=== PATIENT | female | born 1945 | race Caucasian/White ===

== ENCOUNTER 2020-05-25 13:38 | Inpatient (IN) | payer MEDICARE, OTHER, SELFPAY ==
[2020-05-25] VITALS (11 sets, daily range): BP systolic 138–160; BP diastolic 62–82; PULSE 72–94; RESP 20–26; TEMP 37.1–38.4; O2SAT 87–96; BMI 33.6
--- NOTE | 2020-05-25 14:25 | XR_ITS ---
WS: [id number] Portable AP upright chest, 05/25/2020 Clinical Data: COVID-19, SOB Comparison: Portable chest, 08/24/2008. Findings: There are bilateral patchy opacities involving the right lung and in the left lower lobe. N o nodules, masses or effusions are seen. The heart is enlarged. The pulmonary vascularity is not incr eased. No pneumothorax is seen. The aortic arch shows calcification. XR/XR chest 1V portable [id number] Impression: 1. Bilateral patchy opacities consistent with acute pneumonia. 2. Cardiomegaly and atherosclerosis.
[2020-05-25 14:51] LABS: Eosinophils % 0.4 %; Hematocrit 39.1 % (37.0-47.0); Hemoglobin 12.7 g/dL (11.5-15.3); Lymphocytes # 0.7 10^3/uL (0.8-4.8); Lymphocytes % 15.1 %; Mean Corpuscular HGB Conc 32.5 g/dL (30.0-36.0); Mean Corpuscular Hemoglobin 28.5 pg (28.0-34.0); Mean Corpuscular Volume 87.7 fL (81-99); Mean Platelet Volume 9.1 fL (7.4-10.4); Monocytes # 0.3 10^3/uL (0.2-0.9); Monocytes % 5.6 %; Neutrophils # 3.78 10^3/uL (1.8-7.7); Neutrophils % 78.5 %; Nucleated Red Blood Cells % 0 %; Platelet Count 304 10^3/cmm (130-400); Red Blood Count 4.46 10^6/uL (4.1-5.3); Red Cell Distribution Width 13.1 % (12.1-15.1); White Blood Count 4.8 10^3/uL (4.0-10.0)
--- NOTE | 2020-05-25 15:09 | W.ED.COVID ---
HPI - COVID General: Chief Complaint: COVID symptoms Stated Complaint: COVID SYMPTOMS Time Seen by Provider: 05/25/20 13:55 Source: patient Mode of arrival: ambulatory Limitations: no limitations Triage information: Has fever, cough or shortness of breath. Exposure to COVID + person last 14 days History of Present Illness: HPI Narrative: This is a 74-year-old female patient with a history of hypertension and ventricular arrhythmia who presents to the emergency department with worsening symptoms of COVID-19. She started feeling ill about a week ago with fever, body aches, shortness of breath and got tested 3 days ago for COVID-19. The test came back positive. She is not on any medication for the illness. She has been monitoring her oxygen saturations and it drops as low as 82 at home. Primary care provider then asked her to be evaluated in the emergency department. MD complaint: known COVID positive Prior covid testing: yes, results known COVID 19 common symptoms: positive fever(s), chills, cough, non-productive cough, dyspnea, fatigue, body aches, headache(s), loss of sense of smell and/or taste, nasal congestion and nausea; negative productive cough, throat pain, vomiting or diarrhea COVID 19 other sytmptoms: positive requiring oxygen and lethargy; negative chest pressure, chest pain, pleuritic pain, respiratory distress, cyanosis, confusion, new neurological complaints or other concerning symptoms Onset (ago): week(s) (1) Severity: severe Pertinent comorbid conditions: hypertension and heart disease Treatment prior to arrival: acetaminophen, ibuprofen and cold medicine COVID Results: No Data to Display Review of Systems General: Reports: 10 or more systems reviewed and unremarkable except in HPI and below Const: Reports: fever(s), chills, body aches and fatigue Eyes: Denies: change in vision or blurry vision ENMT: Reports: nasal congestion; Denies: throat pain Card: Denies: chest pain Resp: Reports: dyspnea and non-productive cough; Denies: productive cough GI: Reports: nausea; Denies: vomiting or diarrhea : Denies: flank pain, difficulty voiding, dysuria, urinary frequency, urinary urgency or urinary hesitancy Musc: Denies: neck pain, back pain or extremity swelling Skin/Breast: Denies: rash, pruritus or erythema Neuro: Reports: headache(s); Denies: confusion Endo: Denies: polyuria, polydipsia or tired all the time PFSH ED PFSH: Medical History (Updated 05/26/20 @ 11:45 by James Villegas MD, [facility]) GERD (gastroesophageal reflux disease) Hyperlipidemia Hypertension Hypothyroidism Leg swelling Osteoarthritis Palpitations Tendinitis Surgical History (Reviewed 05/25/20 @ 15:14 by James Villegas MD, [facility]) H/O partial cystectomy History of hysterectomy History of thyroidectomy Family History (Reviewed 05/25/20 @ 15:14 by James Villegas MD, [facility]) Other CAD (coronary artery disease) Cancer Diabetes Family history of premature coronary artery disease Hypertension Stroke Social History (Reviewed 05/25/20 @ 15:14 by James Villegas MD, [facility]) Smoking and tobacco status: never smoked Alcohol intake: never Physical Exam Const: COMMON NORMALS: no acute distress, average body habitus, patient oriented x3, no limitations, healthy appearing, alert and well nourished HENMT: COMMON NORMALS: normocephalic, atraumatic and moist oral mucous membranes HEAD & SCALP: normocephalic and atraumatic Neck/C-Spine: COMMON NORMALS: no meningeal signs and no JVD Resp: COMMON NORMALS: normal respiratory effort, No retractions, No use of accessory muscles and percussion normal AUSCULTATION: rales PERCUSSION: percussion normal Cardio: COMMON NORMALS: no JVD, regular rate, regular rhythm, S1 normal heart sound present, S2 normal heart sound present, No gallops present (Cardio), No clicks present (Cardio), No murmurs present (Cardio), No rub (Cardio) and Peripheral pulses 2+ throughout RATE: regular rate RHYTHM: regular rhythm HEART SOUNDS: S1 normal heart sound present and S2 normal heart sound present PERIPHERAL PULSES: Peripheral pulses 2+ throughout GI: COMMON NORMALS: Normal to inspection, nondistended, normoactive bowel sounds present, Soft to palpation, non-tender, No hepatosplenomegaly present, no masses and no bruits PALPATION: Yes Soft to palpation and Yes No hepatosplenomegaly present Extremity: COMMON NORMALS: normal to inspection, full ROM, capillary refill normal, no calf tenderness and no pedal edema Neuro: COMMON NORMALS: patient oriented x3 SENSORIUM/ORIENTATION: Yes alert MENINGEAL SIGNS: Yes no meningeal signs Skin: COMMON NORMALS: no rashes or lesions noted, no wounds, turgor normal, no jaundice, no petechiae and no mottling GENERAL SKIN EXAM: no rashes or lesions noted and turgor normal Course Reevaluation(s): Reevaluation #1: Discussed her labs and imaging with her, and the fact that she is hypoxic, requiring oxygen to maintain her saturations, she may benefit from inpatient care, steroids and remdesivir. She voiced understanding and all questions answered. Time: 15:45 Consultations: Consultation #1: Dr. Angel, hospitalist. He kindly accepted the patient to his service Time: 15:55 Vital Signs: Vital signs: Vital Signs Temperature 97.9 F 05/26/20 08:00 Pulse Rate 85 05/26/20 09:00 Respiratory Rate 20 H 05/26/20 09:00 Blood Pressure 126/79 05/26/20 08:04 Pulse Oximetry 91 05/26/20 09:00 MDM - COVID MDM Narrative: Medical decision making narrative: 74 year old female with hypoxia secondary to severe covid pneumonia. She is a high risk patient and is admitted to the hospital for further evaluation and management. Differential Diagnosis: Differential diagnosis: Likely COVID 19, influenza, other viral infection and copd exacerbation Medical Records: Attestation: I reviewed the patient's medical records. Lab Data: Attestation: I reviewed the patient's lab results. Labs: Lab Results 05/25/20 05/25/20 05/25/20 Range/Units 14:35 14:35 14:35 WBC 4.8 (4.0-10.0) 10^3/ uL RBC 4.46 (4.1-5.3) 10^6/u L Hgb 12.7 (11.5-15.3) g/dL Hct 39.1 (37.0-47.0) % MCV 87.7 (81-99) fL MCH 28.5 (28.0-34.0) pg MCHC 32.5 (30.0-36.0) g/dL RDW 13.1 (12.1-15.1) % Plt Count 304 (130-400) 10^3/c mm MPV 9.1 (7.4-10.4) fL Neut % (Auto) 78.5 % Lymph % (Auto) 15.1 % [place] % (Auto) 5.6 % Eos % (Auto) 0.4 % Baso % (Auto) 0.0 % Neut # (Auto) 3.78 (1.8-7.7) 10^3/u L Lymph # (Auto) 0.7 L (0.8-4.8) 10^3/u L [place] # (Auto) 0.3 (0.2-0.9) 10^3/u L Eos # (Auto) 0.0 (0.0-0.8) 10^3/u L Baso # (Auto) 0.0 (0.0-0.1) 10^3/u L Nucleated RBC % (a uto) 0 % Nucleated RBCs # 0.0 /100WBC D-Dimer 0.53 (0-0.59) ug/mIFE U Sodium 135 L (136-145) mmol/L Potassium 3.5 (3.5-5.1) mmol/L Chloride 95 L (98-107) mmol/L Carbon Dioxide 27 (22-29) mmol/L Anion Gap 16.5 (5-19) BUN 10 (8-23) mg/dL Creatinine 0.6 (0.5-0.9) mg/dL GFR Calculation Not Reportable Glucose 111 (65-115) mg/dL Calculated Osmolal ity 280 L (285-295) mOsm/k g Lactic Acid (0.5-2.2) mmol/L Calcium 9.3 (8.5-10.5) mg/dL Total Bilirubin 0.3 (0.15-1.2) mg/dL AST 47 H (0-32) U/L ALT 55 H (0-33) U/L Alkaline Phosphata se 188 H (35-105) IU/L C-Reactive Protein 198.2 H (0.0-4.9) mg/L Total Protein 7.5 (6.6-8.7) g/dL Albumin 3.8 (3.5-5.2) g/dL Globulin 3.7 (1.3-4.6) g/dL Procalcitonin 4.66 H (0-0.5) ng/mL 12/04/20 Range/Units 14:35 WBC (4.0-10.0) 10^3/ uL RBC (4.1-5.3) 10^6/u L Hgb (11.5-15.3) g/dL Hct (37.0-47.0) % MCV (81-99) fL MCH (28.0-34.0) pg MCHC (30.0-36.0) g/dL RDW (12.1-15.1) % Plt Count (130-400) 10^3/c mm MPV (7.4-10.4) fL Neut % (Auto) % Lymph % (Auto) % [place] % (Auto) % Eos % (Auto) % Baso % (Auto) % Neut # (Auto) (1.8-7.7) 10^3/u L Lymph # (Auto) (0.8-4.8) 10^3/u L [place] # (Auto) (0.2-0.9) 10^3/u L Eos # (Auto) (0.0-0.8) 10^3/u L Baso # (Auto) (0.0-0.1) 10^3/u L Nucleated RBC % (a uto) % Nucleated RBCs # /100WBC D-Dimer (0-0.59) ug/mIFE U Sodium (136-145) mmol/L Potassium (3.5-5.1) mmol/L Chloride (98-107) mmol/L Carbon Dioxide (22-29) mmol/L Anion Gap (5-19) BUN (8-23) mg/dL Creatinine (0.5-0.9) mg/dL GFR Calculation Glucose (65-115) mg/dL Calculated Osmolal ity (285-295) mOsm/k g Lactic Acid 1.5 (0.5-2.2) mmol/L Calcium (8.5-10.5) mg/dL Total Bilirubin (0.15-1.2) mg/dL AST (0-32) U/L ALT (0-33) U/L Alkaline Phosphata se (35-105) IU/L C-Reactive Protein (0.0-4.9) mg/L Total Protein (6.6-8.7) g/dL Albumin (3.5-5.2) g/dL Globulin (1.3-4.6) g/dL Procalcitonin (0-0.5) ng/mL Imaging Data: CXR: Attestation: I personally reviewed and interpreted this imaging study as follows: Radiologist's impression: [facility] [address] [place] [address] XRay Report Signed Patient: Areli Cantu #: [id number] : 7Acct#:[id number] Age/Sex: 74 / FADM Date: 05/25/20 Loc: ERRoom/Bed: Attending Dr: Ordering Provider/Ordering MD: James Villegas MD, [facility] Date of Service: 05/25/20 Procedure(s): XR chest 1V portable [id number] Accession Number(s): [id number] Report Number: [id number] WS: [id number] Portable AP upright chest, 05/25/2020 Clinical Data: COVID-19, SOB Comparison: Portable chest, 08/24/2008. Findings: There are bilateral patchy opacities involving the right lung and in the left lower lobe. No nodules, masses or effusions are seen. The heart is enlarged. The pulmonary vascularity is not increased. No pneumothorax is seen. The aortic arch shows calcification. XR/XR chest 1V portable [id number] Impression: 1. Bilateral patchy opacities consistent with acute pneumonia. 2. Cardiomegaly and atherosclerosis. Dictated By:Christiana Mercer MD Signed By:Christiana Mercer MDSigned Date/Time:05/25/20 1441 DD/ 1439 COVID Results: No Data to Display Discharge Plan Discharge Patient Disposition: Admitted As Inpatient Admit Provider: Dylan Angel Clinical Impression: Hypoxia, Pneumonia due to 2019 novel coronavirus Condition: Stable Coding Level of Care Code ED Missile Inspector for Chg Fwd Exam Comprehensive
[2020-05-25 15:11] LABS: Lactic Sepsis W/Reflex 1.5 mmol/L (0.5-2.2)
[2020-05-25 15:19] LABS: Procalcitonin 4.66 ng/mL (0-0.5)
[2020-05-25 15:30] LABS: Alanine Aminotransferase 55 U/L (0-33); Albumin Level 3.8 g/dL (3.5-5.2); Alkaline Phosphatase 188 IU/L (35-105); Anion Gap 16.5 (5-19); Aspartate Amino Transferase 47 U/L (0-32); Blood Urea Nitrogen 10 mg/dL (8-23); C Reactive Protein 198.2 mg/L (0.0-4.9); Calcium 9.3 mg/dL (8.5-10.5); Carbon Dioxide 27 mmol/L (22-29); Chloride 95 mmol/L (98-107); D Dimer 0.53 ug/mIFEU (0-0.59); Globulin 3.7 g/dL (1.3-4.6); Glucose 111 mg/dL (65-115); Osmolality Calculated 280 mOsm/kg (285-295); Potassium 3.5 mmol/L (3.5-5.1); Sodium 135 mmol/L (136-145); Total Bilirubin 0.3 mg/dL (0.15-1.2); Total Protein 7.5 g/dL (6.6-8.7)
[2020-05-25] MEDS: dexamethasone 4 mg/mL INJ 6 MG IVP (16:44)
[2020-05-25] MEDS: azithromycin 250 MG in sodium chloride 0.9% 250 ML IV (16:44)
--- NOTE | 2020-05-25 17:19 | PM.HP ---
Providers/Chief Complaint Admitting Physician: Dylan Angel MD Primary Care Provider: Lenard De Luna DO Chief Complaint: COVID SYMPTOMS History of Present Illness Areli Cantu is a 74 year old female This is a 74-year-old female with history of hypertension, arrhythmia, hypothyroidism who presented to the ER with worsening dyspnea. 3 days prior she was diagnosed with COVID-19. She reports increased dyspnea body aches with fevers. On arrival she was noted to be hypoxemic with sats 82% at home. She has noted to have abnormal chest x-ray. She is being admitted for COVID-19 pneumonia. Review of Systems General: Reports: 10 or more systems reviewed and unremarkable except in HPI and below Const: Reports: fever(s), chills and body aches Card: Denies: chest pain or palpitations Resp: Reports: dyspnea and productive cough GI: Reports: abdominal pain and nausea Neuro: Denies: headache(s) or numbness in extremities Psych: Denies: anxiety or depression Medications/Allergies Home Medications Medication Instructions Recorded Confirmed Last Taken Type losartan 50 mg tablet 50 mg PO DAILY #90 tab 12/06/19 Unknown Rx esomeprazole magnesium 20 mg 20 mg PO DAILY 03/20/20 Unknown History capsule,delayed release furosemide 40 mg tablet 40 mg PO DAILY PRN 03/20/20 Unknown History levothyroxine 112 mcg capsule 112 mcg PO DAILY 03/20/20 Unknown History metoprolol tartrate 25 mg tablet 25 mg PO BID 03/20/20 Unknown History nitroglycerin 0.4 mg sublingual 0.4 mg SUBLINGUAL Q5M PRN 03/20/20 Unknown History tablet potassium chloride 10 mEq 10 meq PO BID PRN 03/20/20 Unknown History capsule,extended release vit C 250 mg-E 200 unit-zinc 40 1 tab PO BID 03/20/20 Unknown History mg-copper 1 [id number]-[id number] capsule Prevagen 1 cap PO DAILY 05/25/20 05/25/20 Unknown History acetaminophen [Tylenol Extra 1,000 mg PO Q4H PRN 05/25/20 05/25/20 05/25/20 10:00 History Strength] cholecalciferol (vitamin D3) 50,000 unit PO Q7D 05/25/20 05/25/20 Unknown History glucosamine-chondroitin [Osteo 1 tab PO DAILY 05/25/20 05/25/20 Unknown History Bi-Flex] ibuprofen [Advil] 200 mg PO Q6H PRN 05/25/20 05/25/20 Unknown History krill oil 1 cap PO DAILY 05/25/20 05/25/20 Unknown History magnesium L-lactate [Magtab] 84 mg PO Q12H 05/25/20 05/25/20 Unknown History [id number]-dqwx-FA-lutein 1 tab PO DAILY 05/25/20 05/25/20 Unknown History [Centrum Silver Women] pseudoephedrine-ibuprofen [Advil 1 tab PO Q6H 05/25/20 05/25/20 05/25/20 10:00 History Cold and Sinus] Allergies Allergy/AdvReac Type Severity Reaction Status Date / Time No Known Allergies Allergy Unverified 09/19/19 12:59 PFSH Acute PFSH: Medical History (Updated 05/25/20 @ 17:22 by Dylan Agnel MD) GERD (gastroesophageal reflux disease) Hyperlipidemia Hypertension Hypothyroidism Leg swelling Osteoarthritis Palpitations Tendinitis Surgical History H/O partial cystectomy History of hysterectomy History of thyroidectomy Family History Other CAD (coronary artery disease) Cancer Diabetes Family history of premature coronary artery disease Hypertension Stroke Social History Smoking and tobacco status: never smoked Alcohol intake: never Vitals/I&O/Wt Last Vital Signs Temp 98.7 F 05/25/20 13:45 Pulse 84 05/25/20 13:45 Resp 26 H 05/25/20 13:45 BP 160/62 05/25/20 15:29 Pulse Ox 92 05/25/20 16:44 Weight last 48 hrs Weight 190 lb Physical Exam Const: COMMON NORMALS: average body habitus GENERAL APPEARANCE: cooperative ORIENTATION/CONSCIOUSNESS: Yes awake, Yes oriented to person, Yes oriented to place and Yes oriented to time Resp: COMMON NORMALS: normal respiratory effort EFFORT & INSPECTION: Yes able to speak in complete sentences and Yes tachypneic AUSCULTATION: rhonchi Cardio: RATE: regular rate RHYTHM: regular rhythm GI: PALPATION: Yes Soft to palpation and No Tenderness to palpation present (GI) Extremity: COMMON NORMALS: normal to inspection Neuro: COMMON NORMALS: patient oriented x3 SPEECH: speech normal Skin: GENERAL SKIN EXAM: no rashes or lesions noted Data : 05/25/20 14:35 05/25/20 14:35 A&P Assessment and plan (1) [facility] continue antibiotics Rocephin and azithromycin, remdesivir and dexamethasone breathing treatments Taper oxygen as tolerated Status: Acute (2) Pneumonia: As above we will treat for community-acquired pneumonia also Status: Acute (3) Hypothyroidism: continue home replacement Status: Acute (4) Hypertension: restart home medication Status: Acute Qualifiers: Hypertension type: essential hypertension Qualified Code(s): I10 - Essential (primary) hypertension Additional A&P Information DVT:Moniquenox Code:full Attestations Medical Necessity Statement*: Areli Rowan Alondra's hospital stay will require greater than 2 midnights for pneumonia Coding Level of Care Code Acute Metal Extrusion Supervisor for [facility] Fwd Diagnoses COVID-19 U07.1 Pneumonia J18.9 Hypothyroidism E03.9 Hypertension I10 Hypertension type: essential hypertension
--- NOTE | 2020-05-25 18:25 | PC.NURSE ---
Patient arrived to the floor on 3 liters of oxygen. Patient is A&Ox3.
[2020-05-25] MEDS: albuterol 8 gm MDI 2 PUFF INHALATION ×2 (18:27→21:00)
[2020-05-25] MEDS: enoxaparin 40 mg/0.4 mL Syringe SUBCUT (18:35)
[2020-05-25] MEDS: metoprolol tartrate 25 mg Tablet PO (18:35)
[2020-05-25] MEDS: acetaminophen 325 mg Tablet 650 MG PO ×2 (18:35→22:49)
[2020-05-26] VITALS (13 sets, daily range): BP systolic 103–155; BP diastolic 63–82; PULSE 62–89; RESP 17–22; TEMP 36–37.2; O2SAT 87–96
[2020-05-26] MEDS: acetaminophen 325 mg Tablet 650 MG PO ×2 (04:53→16:33)
[2020-05-26 05:16] LABS: Alanine Aminotransferase 48 U/L (0-33); Albumin Level 3.4 g/dL (3.5-5.2); Alkaline Phosphatase 194 IU/L (35-105); Blood Urea Nitrogen 12 mg/dL (8-23); Carbon Dioxide 25 mmol/L (22-29); Chloride 97 mmol/L (98-107); Glucose 155 mg/dL (65-115); Osmolality Calculated 285 mOsm/kg (285-295); Sodium 136 mmol/L (136-145); Total Bilirubin 0.2 mg/dL (0.15-1.2); Total Protein 7.4 g/dL (6.6-8.7)
[2020-05-26 06:06] LABS: Anion Gap 18.8 (5-19); Aspartate Amino Transferase 52 U/L (0-32); Potassium 4.8 mmol/L (3.5-5.1)
[2020-05-26] MEDS: cefTRIAXone 2,000 MG in sodium chloride 0.9% (plus) 50 ML 100 MG IV (08:03)
[2020-05-26] MEDS: levothyroxine 112 mcg Tablet PO (08:04)
[2020-05-26] MEDS: losartan 50 mg Tablet PO (08:04)
[2020-05-26] MEDS: metoprolol tartrate 25 mg Tablet PO ×2 (08:04→17:55)
[2020-05-26] MEDS: albuterol 8 gm MDI 2 PUFF INHALATION ×2 (08:46→14:54)
--- NOTE | 2020-05-26 13:18 | P.PN_ITS ---
Subjective Subjective: Interval history: feels better afebrile productive cough Vitals/I&O/Wt Last Vital Signs Temp 97.8 F 05/26/20 11:53 Pulse 62 05/26/20 11:53 Resp 20 H 05/26/20 11:53 BP 128/77 05/26/20 11:53 Pulse Ox 91 05/26/20 11:53 05/25/20 05/26/20 05/26/20 22:59 06:59 14:59 Intake Total 120 / 120 Output Total 100 / 100 400 / 500 Balance -100 / -100 -400 / -500 120 / 120 Weight last 48 hrs Weight 190 lb Physical Exam Const: COMMON NORMALS: no acute distress, patient oriented x3 and alert Resp: EFFORT & INSPECTION: Yes able to speak in complete sentences and Yes symmetric chest movement AUSCULTATION: rhonchi Cardio: COMMON NORMALS: regular rate and regular rhythm RATE: regular rate RHYTHM: regular rhythm GI: COMMON NORMALS: Soft to palpation PALPATION: Yes Soft to palpation and No Tenderness to palpation present (GI) Neuro: COMMON NORMALS: patient oriented x3 SENSORIUM/ORIENTATION: Yes alert Psych: COMMON NORMALS: mental status grossly normal and Normal thought process present THOUGHT PROCESS: Normal thought process present Skin: COMMON NORMALS: no rashes or lesions noted GENERAL SKIN EXAM: no rashes or lesions noted Data : 05/25/20 14:35 05/26/20 04:30 A&P Assessment and plan (1) Pneumonia: Status: Acute (2) COVID-19: -taper O2 -continue Remdesevir, decadron, IV abx, O2, albuterol Status: Acute (3) Hypothyroidism: on replacement Status: Acute (4) Hypoxia: taper Status: Acute (5) Hypertension: stable continue Losartan, Metoprolol, Status: Acute Qualifiers: Hypertension type: essential hypertension Qualified Code(s): I10 - Essential (primary) hypertension Additional A&P Information Full Code Lovenox Dispo: home Attestations Medical Necessity Statement*: Areli Rowan Albanmadhavi's hospital stay will require greater than 2 midnights for pneumonia Coding Level of Care Code Acute Raw Shellfish Preparer for [facility] Fw Diagnoses Pneumonia J18.9 COVID-19 U07.1 Hypothyroidism E03.9 Hypoxia R09.02 Hypertension I10 Hypertension type: essential hypertension
[2020-05-26] MEDS: azithromycin 500 MG in sodium chloride 0.9% 250 ML 250 MG IV (16:32)
[2020-05-26] MEDS: dexamethasone 4 mg/mL INJ 6 MG IV (16:32)
[2020-05-26] MEDS: TRAMadol 50 mg Tablet PO (16:33)
[2020-05-26] MEDS: enoxaparin 40 mg/0.4 mL Syringe SUBCUT (16:33)
[2020-05-27] VITALS (16 sets, daily range): BP systolic 118–138; BP diastolic 66–75; PULSE 59–93; RESP 16–24; TEMP 36.4–37.1; O2SAT 89–95
[2020-05-27 06:07] LABS: Alanine Aminotransferase 72 U/L (0-33); Albumin Level 3.3 g/dL (3.5-5.2); Alkaline Phosphatase 166 IU/L (35-105); Aspartate Amino Transferase 54 U/L (0-32); Blood Urea Nitrogen 19 mg/dL (8-23); Calcium 9.2 mg/dL (8.5-10.5); Carbon Dioxide 27 mmol/L (22-29); Chloride 98 mmol/L (98-107); Globulin 3.5 g/dL (1.3-4.6); Glucose 148 mg/dL (65-115); Osmolality Calculated 287 mOsm/kg (285-295); Sodium 136 mmol/L (136-145); Total Bilirubin 0.2 mg/dL (0.15-1.2); Total Protein 6.8 g/dL (6.6-8.7)
[2020-05-27 06:33] LABS: D Dimer 0.47 ug/mIFEU (0-0.59)
[2020-05-27] MEDS: cefTRIAXone 2,000 MG in sodium chloride 0.9% (plus) 50 ML 100 MG IV (08:11)
[2020-05-27] MEDS: TRAMadol 50 mg Tablet PO ×2 (08:12→17:04)
[2020-05-27] MEDS: acetaminophen 325 mg Tablet 650 MG PO ×2 (08:12→17:04)
[2020-05-27] MEDS: losartan 50 mg Tablet PO (08:12)
[2020-05-27] MEDS: levothyroxine 112 mcg Tablet PO (08:12)
[2020-05-27] MEDS: metoprolol tartrate 25 mg Tablet PO ×2 (08:13→17:04)
[2020-05-27] MEDS: albuterol 8 gm MDI 2 PUFF INHALATION ×4 (09:09→20:28)
--- NOTE | 2020-05-27 09:23 | XRR_ITS ---
PROCEDURE INFORMATION: Exam: XR Chest, 1 View Exam date and time: 05/27/2020 10:09 AM Age: 74 years old Clinical indication: Shortness of breath; Additional info: Increase hypoxemia TECHNIQUE: Imaging protocol: XR of the chest Views: 1 view. COMPARISON: CR XR chest 1V portable [id number] 05/25/2020 2:28 PM FINDINGS: Lungs: There are worsening bilateral interstitial and patchy alveolar infiltrates which are consistent with worsening pneumonia. Pleural space: Unremarkable. No pleural effusion. No pneumothorax. Heart/Mediastinum: Unremarkable. No cardiomegaly. Bones/joints: Unremarkable. XR/XR chest 1V portable [id number] IMPRESSION: Worsening bilateral pneumonia.
[2020-05-27] MEDS: cholecalciferol (vitamin D3) 1,000 unit Tablet 2000 UNIT PO (09:59)
--- NOTE | 2020-05-27 12:03 | P.PN_ITS ---
Subjective Subjective: Interval history: This is a 74-year-old female admitted for Covid pneumonia. Increased oxygen requirements today. Chest x-ray shows slightly worsening pneumonia. Afebrile. Vitals/I&O/Wt Last Vital Signs Temp 98.5 F 05/27/20 11:45 Pulse 61 05/27/20 11:56 Resp 22 H 05/27/20 11:56 BP 118/74 05/27/20 11:45 Pulse Ox 89 L 05/27/20 11:56 05/26/20 05/27/20 05/27/20 22:59 06:59 14:59 Intake Total 830 / 1120 170 / 170 Output Total 1025 / 1125 200 / 1325 Balance -195 / -5 -200 / -205 170 / 170 Weight last 48 hrs Weight 190 lb Physical Exam Const: COMMON NORMALS: no acute distress, average body habitus, patient oriented x3 and alert GENERAL APPEARANCE: cooperative ORIENTATION/CONSCIOUSNESS: Yes awake, Yes oriented to person, Yes oriented to place and Yes oriented to time Resp: COMMON NORMALS: normal respiratory effort EFFORT & INSPECTION: Yes able to speak in complete sentences, Yes symmetric chest movement and Yes tachypneic AUSCULTATION: rhonchi Cardio: COMMON NORMALS: regular rate and regular rhythm RATE: regular rate RHYTHM: regular rhythm GI: COMMON NORMALS: Soft to palpation PALPATION: Yes Soft to palpation and No Tenderness to palpation present (GI) Extremity: COMMON NORMALS: normal to inspection Neuro: COMMON NORMALS: patient oriented x3 SENSORIUM/ORIENTATION: Yes alert, Yes oriented to person, Yes oriented to place and Yes oriented to time SPEECH: speech normal Psych: COMMON NORMALS: mental status grossly normal and Normal thought process present THOUGHT PROCESS: Normal thought process present Skin: COMMON NORMALS: no rashes or lesions noted GENERAL SKIN EXAM: no rashes or lesions noted Data : 05/25/20 14:35 05/27/20 05:00 A&P Assessment and plan (1) Pneumonia: Slightly worse on imaging We will continue Rocephin and azithromycin for now Adjust antibiotics if worsening symptoms Status: Acute (2) COVID-19: -taper O2 -continue Remdesevir, decadron, IV abx, O2, albuterol -We will discuss with lab regarding checking IgG and possibility of convalescent plasma if she worsens Status: Acute (3) Hypothyroidism: on replacement Status: Acute (4) Hypoxia: taper One-time dose of Lasix ordered Status: Acute (5) Hypertension: stable continue Losartan, Metoprolol, Status: Acute Qualifiers: Hypertension type: essential hypertension Qualified Code(s): I10 - Essential (primary) hypertension Additional A&P Information Full Code Lovenox Dispo: home Attestations Medical Necessity Statement*: Areli Rowan Albanmadhavi's hospital stay will require greater than 2 midnights for pneumonia Coding Level of Care Code Acute Platen Drier Operator for [facility] Fwd Diagnoses Pneumonia J18.9 COVID-19 U07.1 Hypothyroidism E03.9 Hypoxia R09.02 Hypertension I10 Hypertension type: essential hypertension
[2020-05-27] MEDS: FUROsemide 40 mg Tablet 80 MG PO (12:49)
[2020-05-27] MEDS: dexamethasone 4 mg/mL INJ 6 MG IV (16:18)
[2020-05-27] MEDS: azithromycin 500 MG in sodium chloride 0.9% 250 ML 250 MG IV (16:18)
[2020-05-27] MEDS: enoxaparin 40 mg/0.4 mL Syringe SUBCUT (16:58)
[2020-05-28] VITALS (13 sets, daily range): BP systolic 96–139; BP diastolic 58–83; PULSE 53–69; RESP 16–20; TEMP 36.4–36.9; O2SAT 91–95
[2020-05-28 07:03] LABS: Alanine Aminotransferase 65 U/L (0-33); Albumin Level 3.4 g/dL (3.5-5.2); Alkaline Phosphatase 150 IU/L (35-105); Anion Gap 15.1 (5-19); Aspartate Amino Transferase 38 U/L (0-32); Blood Urea Nitrogen 20 mg/dL (8-23); Calcium 9.2 mg/dL (8.5-10.5); Carbon Dioxide 29 mmol/L (22-29); Chloride 97 mmol/L (98-107); Globulin 3.4 g/dL (1.3-4.6); Glucose 166 mg/dL (65-115); Osmolality Calculated 290 mOsm/kg (285-295); Potassium 4.1 mmol/L (3.5-5.1); Sodium 137 mmol/L (136-145); Total Bilirubin 0.2 mg/dL (0.15-1.2); Total Protein 6.8 g/dL (6.6-8.7)
[2020-05-28] MEDS: albuterol 8 gm MDI 2 PUFF INHALATION ×2 (07:45→20:40)
[2020-05-28] MEDS: metoprolol tartrate 25 mg Tablet PO (08:30)
[2020-05-28] MEDS: losartan 50 mg Tablet PO (08:30)
[2020-05-28] MEDS: levothyroxine 112 mcg Tablet PO (08:30)
[2020-05-28] MEDS: cholecalciferol (vitamin D3) 1,000 unit Tablet 2000 UNIT PO (08:30)
[2020-05-28] MEDS: cefTRIAXone 2,000 MG in sodium chloride 0.9% (plus) 50 ML 100 MG IV (08:30)
--- NOTE | 2020-05-28 08:35 | PC.SOCIAL ---
IMM Update Pg. 2 of IMM updated and reviewed with patient over the phone, who verbalized understanding.
[2020-05-28] MEDS: acetaminophen 325 mg Tablet 650 MG PO (08:38)
[2020-05-28] MEDS: TRAMadol 50 mg Tablet PO (08:38)
--- NOTE | 2020-05-28 13:18 | P.PN_ITS ---
Subjective Subjective: Interval history: Patient was noted to have increase oxygen requirement overnight. No fever, chills, nausea or vomiting. Vitals/I&O/Wt Last Vital Signs Temp 98.5 F 05/28/20 11:36 Pulse 53 L 05/28/20 11:36 Resp 16 05/28/20 11:36 BP 107/65 05/28/20 11:36 Pulse Ox 94 05/28/20 11:36 05/27/20 05/28/20 05/28/20 22:59 06:59 14:59 Intake Total 670 / 1080 170 / 170 Output Total 1200 / 1200 600 / 600 Balance -530 / -120 -430 / -430 Physical Exam Narrative: EXAM NARRATIVE: Generally: Alert, oriented x 3 with conversational dyspnea HEENT : Grossly unremakable CHEST : Non-labored respiration on 8 L via NC CVS : NSR ABD : Non-distended Ext: No edema Data : 05/25/20 14:35 05/28/20 04:05 A&P Assessment and plan (1) Hypoxia: Status: Acute (2) Pneumonia due to 2019 novel coronavirus: Status: Acute (3) Hypothyroidism: Status: Acute (4) Pneumonia: Status: Acute (5) COVID-19: Status: Acute (6) Hypertension: Status: Acute Qualifiers: Hypertension type: essential hypertension Qualified Code(s): I10 - Essential (primary) hypertension (7) Hyperlipidemia: Status: Acute Qualifiers: Hyperlipidemia type: mixed hyperlipidemia Qualified Code(s): E78.2 - Mixed hyperlipidemia Acute hypoxic respiratory failrue due to covid-19 pneumonia - Wean supplemental 02 as needed - Continue decadron 6 mg IV daily x 10 days - Remdesivir 5 day protocol - Last dose on 05/29 - Empirically started on Rocephin 2g IV daily and Azithromycin 500mg IV daily - Albuterol 2 puff q4hr - Low suspicion of superimposed bacterial infection - Will likely need o2 at discharge Hypertension - Metoprolol 25 mg PO BID - Losartan 50 mg PO daily Hypothyroidism - Synthroid 112 mcg Po dialy DVT ppx Lovenox 40 mg SQ daily Attestations Medical Necessity Statement*: Will require further hospitalization for IV r emdesivir, decadron, abx, and titration of oxygen. Time Spent in Patient Care: Greater than 35 minutes Coding Level of Care Code Acute Log Sorting Supervisor for [facility] Fwd Diagnoses Hypoxia R09.02 Pneumonia due to 2019 novel coronavirus U07.1; J12.89 Hypothyroidism E03.9 Pneumonia J18.9 COVID-19 U07.1 Hypertension I10 Hypertension type: essential hypertension Hyperlipidemia E78.2 Hyperlipidemia type: mixed hyperlipidemia
[2020-05-28] MEDS: azithromycin 500 MG in sodium chloride 0.9% 250 ML 250 MG IV (16:21)
[2020-05-28] MEDS: dexamethasone 4 mg/mL INJ 6 MG IV (16:21)
[2020-05-28] MEDS: enoxaparin 40 mg/0.4 mL Syringe SUBCUT (17:20)
[2020-05-29] VITALS (9 sets, daily range): BP systolic 111–168; BP diastolic 63–75; PULSE 55–62; RESP 16–20; TEMP 36.3–36.8; O2SAT 93–98
[2020-05-29] MEDS: cefTRIAXone 2,000 MG in sodium chloride 0.9% (plus) 50 ML 100 MG IV (08:09)
[2020-05-29] MEDS: cholecalciferol (vitamin D3) 1,000 unit Tablet 2000 UNIT PO (08:10)
[2020-05-29] MEDS: levothyroxine 112 mcg Tablet PO (08:10)
[2020-05-29] MEDS: losartan 50 mg Tablet PO (08:10)
[2020-05-29] MEDS: metoprolol tartrate 25 mg Tablet PO ×2 (08:11→17:02)
[2020-05-29] MEDS: acetaminophen 325 mg Tablet 650 MG PO (08:11)
[2020-05-29] MEDS: TRAMadol 50 mg Tablet PO (08:11)
[2020-05-29] MEDS: albuterol 8 gm MDI 2 PUFF INHALATION ×2 (08:31→15:04)
--- NOTE | 2020-05-29 12:45 | P.PN_ITS ---
Subjective Subjective: Interval history: New clinical events overnight. Patient's oxygen saturations were decreased to 6 L. denies any new fevers or chills. Noted improvement in respiratory status. Denies chest pain. Vitals/I&O/Wt Last Vital Signs Temp 98.1 F 05/29/20 12:00 Pulse 55 L 05/29/20 12:00 Resp 16 05/29/20 12:00 BP 111/63 05/29/20 12:00 Pulse Ox 95 05/29/20 12:00 05/28/20 05/29/20 05/29/20 22:59 06:59 14:59 Intake Total 470 / 880 410 / 410 Output Total 0 1 950 / 950 Balance 469 / -21 0 / -21 -540 / -540 Physical Exam Narrative: EXAM NARRATIVE: Generally: Alert, oriented x 3 HEENT : Grossly unremakable CHEST : Non-labored respiration on 6 L via NC CVS : NSR ABD : Non-distended Ext: No edema Data : 05/25/20 14:35 05/28/20 04:05 A&P Assessment and plan (1) Hypoxia: Status: Acute (2) Pneumonia due to 2019 novel coronavirus: Status: Acute (3) Hypothyroidism: Status: Acute (4) Pneumonia: Status: Acute (5) COVID-19: Status: Acute (6) Hypertension: Status: Acute Qualifiers: Hypertension type: essential hypertension Qualified Code(s): I10 - Essential (primary) hypertension (7) Hyperlipidemia: Status: Acute Qualifiers: Hyperlipidemia type: mixed hyperlipidemia Qualified Code(s): E78.2 - Mixed hyperlipidemia Acute hypoxic respiratory failure due to covid-19 pneumonia - Wean supplemental 02 as needed - Continue decadron 6 mg IV daily x 10 days - Remdesivir 5 day protocol - Last dose on 05/29 ( today ) - Empirically started on Rocephin 2g IV daily and Azithromycin 500mg IV daily ( Discontinue ) - Albuterol 2 puff q4hr - Low suspicion of superimposed bacterial infection - Will likely need o2 at discharge - Would like o2 requirements to be less than 5L with rest/ambulation prior to discharging - Repeat CBC/CMP in am Hypertension - Metoprolol 25 mg PO BID - Losartan 50 mg PO daily Hypothyroidism - Synthroid 112 mcg Po dialy DVT ppx Lovenox 40 mg SQ daily Additional A&P Information Full Code Lovenox Dispo: home Attestations Medical Necessity Statement*: Will require additional day in hospital to wean oxygen. Anticipated discharge likely in 1 to 2 days. Time Spent in Patient Care: Greater than 35 minutes (>than 50% of time spent in counselling and/or direct pt care on unit) . 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
[2020-05-29] MEDS: enoxaparin 40 mg/0.4 mL Syringe SUBCUT (17:00)
[2020-05-29] MEDS: dexamethasone 4 mg/mL INJ 6 MG IV (17:01)
[2020-05-30] VITALS (10 sets, daily range): BP systolic 95–150; BP diastolic 55–75; PULSE 50–61; RESP 18–20; TEMP 36.4–36.7; O2SAT 88–98
[2020-05-30 05:44] LABS: Basophils % 0.4 %; Hemoglobin 11.7 g/dL (11.5-15.3); Lymphocytes # 0.9 10^3/uL (0.8-4.8); Lymphocytes % 10.9 %; Mean Corpuscular HGB Conc 30.8 g/dL (30.0-36.0); Mean Corpuscular Volume 94.3 fL (81-99); Mean Platelet Volume 8.9 fL (7.4-10.4); Monocytes # 0.4 10^3/uL (0.2-0.9); Monocytes % 5.1 %; Neutrophils # 6.64 10^3/uL (1.8-7.7); Neutrophils % 80.7 %; Nucleated Red Blood Cells % 0 %; Platelet Count 398 10^3/cmm (130-400); Red Blood Count 4.03 10^6/uL (4.1-5.3); White Blood Count 8.2 10^3/uL (4.0-10.0)
[2020-05-30 05:59] LABS: Alanine Aminotransferase 82 U/L (0-33); Albumin Level 2.8 g/dL (3.5-5.2); Alkaline Phosphatase 136 IU/L (35-105); Anion Gap 15.3 (5-19); Aspartate Amino Transferase 35 U/L (0-32); Blood Urea Nitrogen 20 mg/dL (8-23); Carbon Dioxide 24 mmol/L (22-29); Chloride 96 mmol/L (98-107); Globulin 3.4 g/dL (1.3-4.6); Glucose 141 mg/dL (65-115); Osmolality Calculated 277 mOsm/kg (285-295); Potassium 4.3 mmol/L (3.5-5.1); Sodium 131 mmol/L (136-145); Total Bilirubin 0.2 mg/dL (0.15-1.2); Total Protein 6.2 g/dL (6.6-8.7)
[2020-05-30] MEDS: cholecalciferol (vitamin D3) 1,000 unit Tablet 2000 UNIT PO (08:50)
[2020-05-30] MEDS: losartan 50 mg Tablet PO (08:50)
[2020-05-30] MEDS: metoprolol tartrate 25 mg Tablet PO (08:51)
[2020-05-30] MEDS: levothyroxine 112 mcg Tablet PO (08:51)
[2020-05-30] MEDS: acetaminophen 325 mg Tablet 650 MG PO (08:54)
--- NOTE | 2020-05-30 10:23 | PC.SOCIAL ---
IMM Updated Updated pt on Pg 2 IMM. No questions voiced. Provided a copy to the pt care nurse to give to pt. Signed, dated, & timed copy in chart.
--- NOTE | 2020-05-30 14:25 | PM.DCS ---
Discharge Providers Date of Admission: 05/25/20 16:01 Date of Discharge: May 30, 2020 Attending Provider at Admission: Dylan Angel MD Attending Provider at Discharge: Christian Desir Primary Care Provider: Lenard De Luna DO Diagnoses at Discharge Discharge Diagnosis (1) Hypoxia: Status: Acute (2) Pneumonia due to 2019 novel coronavirus: Status: Acute (3) Hypothyroidism: Status: Acute (4) Pneumonia: Status: Acute (5) COVID-19: Status: Acute (6) Hypertension: Status: Acute Qualifiers: Hypertension type: essential hypertension Qualified Code(s): I10 - Essential (primary) hypertension (7) Hyperlipidemia: Status: Acute Qualifiers: Hyperlipidemia type: mixed hyperlipidemia Qualified Code(s): E78.2 - Mixed hyperlipidemia Reason for Visit Reason for Visit: COVID SYMPTOMS Hospital Course Hospital Course 74-year-old female who was admitted to the hospital with respiratory distress due to COVID-19 pneumonia resulting in hypoxia requiring supplemental oxygen. Patient was started on remdesivir which was completed on 05 29. Addition was started on Decadron 6 mg daily of which she completed 5 days. He initially was also started on ceftriaxone and azithromycin which was discontinued as patient was not suspected after secondary bacterial infection. Her O2 requirements improved by the time of discharge. She was still however requiring 3 L of O2 via nasal cannula continuously. This was arranged for patient. Discharge in stable condition. Physical Exam Narrative: EXAM NARRATIVE: Generally: Alert, oriented x 3 HEENT : Grossly unremakable CHEST : Non-labored respiration on 3 L via NC CVS : NSR ABD : Non-distended Ext: No edema Discharge Data Data Completed and Pending: Completed Studies During Hospitalization Category Date Time Status CXRP [XR chest 1V portable [id number]] R outine Exams 05/27/20 09:23 Completed XR chest 1V alex ble [id number] Stat Exams 05/25/20 14:25 Completed Labs from last 24 hours 05/30/20 05/30/20 05:30 05:00 WBC 8.2 RBC 4.03 L Hgb 11.7 Hct 38.0 MCV 94.3 MCH 29.0 MCHC 30.8 RDW 13.0 Plt Count 398 MPV 8.9 Neut % (Auto) 80.7 Lymph % (Auto) 10.9 [place]oup % (Auto) 5.1 Eos % (Auto) 0.0 Baso % (Auto) 0.4 Neut # (Auto) 6.64 Lymph # (Auto) 0.9 [place]oup # (Auto) 0.4 Eos # (Auto) 0.0 Baso # (Auto) 0.0 Nucleated RBC % (a uto) 0 Nucleated RBCs # 0.0 Sodium 131 L Potassium 4.3 Chloride 96 L Carbon Dioxide 24 Anion Gap 15.3 BUN 20 Creatinine 0.5 GFR Calculation Not Reportable Glucose 141 H Calculated Osmolal ity 277 L Calcium 9.0 Total Bilirubin 0.2 AST 35 H ALT 82 H Alkaline Phosphata se 136 H Total Protein 6.2 L Albumin 2.8 L Globulin 3.4 Vitals: Last Vital Signs Temp 98.0 F 05/30/20 11:04 Pulse 52 L 05/30/20 11:04 Resp 20 H 05/30/20 11:04 BP 95/55 05/30/20 11:04 Pulse Ox 94 05/30/20 11:04 Discharge Plan Discharge Patient Disposition: Home Condition: Stable Prescriptions: New Decadron 6 mg tablet 6 mg PO DAILY Qty: 5 RF: 0 Continued nitroglycerin [Nitrostat] 0.4 mg tablet, sublingual 0.4 mg SUBLINGUAL Q5M PRN (Reason: Chest Pain) RF: 0 potassium chloride 10 mEq capsule, extended release 10 meq PO DAILY PRN (Reason: unknown) RF: 0 furosemide 40 mg tablet 20 - 40 mg PO DAILY PRN (Reason: Edema) RF: 0 levothyroxine 112 mcg capsule 112 mcg PO DAILY RF: 0 esomeprazole magnesium [Nexium] 20 mg capsule,delayed release(DR/EC) 20 mg PO DAILY RF: 0 metoprolol tartrate 25 mg tablet 25 mg PO Q12H RF: 0 PreserVision AREDS-2 [id number] dm-vdpe-tj-mg capsule 1 tab PO BID RF: 0 losartan 50 mg tablet 50 mg PO DAILY Qty: 90 RF: 3 Tylenol Extra Strength 500 mg Tablet 1,000 mg PO Q4H PRN (Reason: Pain) RF: 0 Osteo Bi-Flex 250-200 mg Tablet 1 tab PO DAILY RF: 0 Magtab 84 mg Tablet Extended Release 84 mg PO Q12H RF: 0 cholecalciferol (vitamin D3) 1,250 mcg (50,000 unit) capsule 50,000 unit PO Q7D RF: 0 Prevagen 1 cap PO DAILY RF: 0 Discontinued Advil Cold and Sinus 30-200 mg Tablet 1 tab PO Q6H RF: 0 ibuprofen [Advil] 200 mg Tablet 200 mg PO Q6H PRN (Reason: Pain) RF: 0 Centrum Silver Women 8 mg iron-400 mcg-300 mcg Tablet 1 tab PO DAILY RF: 0 krill oil 1 cap PO DAILY RF: 0 Discharge Orders: Discharge Order (Routine); Ordered 05/30/20 Ordered By: Christian Desir Other Ambulatory Orders: DME: Oxygen (Order) Location: None Selected Ordered By: Christian Desir Referrals: Lenard De Luna DO [Primary Care Provider] - 1 week (APPOINTMENT WILL BE PHONE CALL) Discharge Diet: Advance as tolerated Discharge Activity: Resume usual activity Patient Instructions: Dexamethasone (By mouth), Pneumonia Stoplight, Pneumonia - Viral Discharge Attestations Time Spent in Discharge Care*: greater than 30 min Specific Discharge Activities: educating patient, discussing with transplant case manager/social workers/dc planners, documenting/other paperwork and evaluating patient/reviewing data Status at Discharge: Cognitive status at discharge: cognitively intact, Behavioral status at discharge: cooperative, Functional status at discharge: independent ambulation Overall status at discharge: patient is progressing back to baseline Quality Metrics Clinical Quality Measures During this hospital stay, did patient experience: None Coding Level of Care Code 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
--- NOTE | 2020-05-30 14:35 | PC.NURSE ---
pt received discharge paperwork, meds to beds, as well as home oxygen. educated pt on new medication, home oxygen, and discharge information. all questions answered.
--- NOTE | 2020-05-31 09:26 | PC.SOCIAL ---
Attempted to do COVID phone call F/U. No answer, left a voicemail.
--- NOTE | 2020-06-04 14:54 | PC.SOCIAL ---
Spoke with patient today. She indicates she is still not feeling well. Her O2 sat is 100%. She is still on 3L. We discussed to turn O2 down to 2L and check O2 sitting and ambulating to ensure sats are 95% or greater. She was advised to discuss with Dr De Luna titrating her O2 so she is not retaining CO2. She indicates having some chest tightness. No chest pain. She indicates lymph nodes appear swollen and has cancer sores inside mouth and lips. She has been afebrile but has headache. She is waiting on Dr De Luna office to call her back she talked to them today. Advised if they have not called her by tomorrow am to call them back. She was given my number to call tomorrow if unable to arrange an appt. She was advised to discuss all concerns above as well as that she is retaining fluid. She weighed 3 pounds more this am. She took her PRN Lasix. We discussed to continue weighing in am and taking Lasix until weight is back to baseline. Her BP have been low so she is holding off on some of BP meds. She was advised to discuss this with Dr De Luna as well. She knows to keep feet elevating when sitting and to limit excessive fluid intake. We discussed avoiding sweets and eating nutritional foods with complex carbs and protein. she indicates they are doing this. We discussed to wear mask in public, maintain 6 ft social distancing, wash hands 20 seconds each time with soap and warm water, disinfecting highly utilized surfaces. Patient verbalized understanding of all information given. She was appreciative of the call and wrote down my contact number. Patient is also worried about spouse who is currently in hospital. Patient has been ambulatory since home. She was encouraged to continue activity as able follow up with PCP In 24 hours and to try to limit stress. She was encouraged to call hospital and speak with pt care nurse taking care of for updates since she is very worried about him.
== END 2020-05-30 14:53 | disposition home or self-care (01) | DRG 177 ==
LOC: ER 17:01 → MEDSURG 17:16
PROVIDERS: Admitting Provider Internal Medicine; Emergency Provider Family Medicine; PCP Family Medicine; Visit Provider Hospitalist
DX: U07.1 COVID-19 (principal); J12.89 Other viral pneumonia; I10 Essential (primary) hypertension; E03.9 Hypothyroidism, unspecified; E78.2 Mixed hyperlipidemia; M19.90 Unspecified osteoarthritis, unspecified site; K21.9 Gastro-esophageal reflux disease without esophagitis; E78.5 Hyperlipidemia, unspecified
CPT/HCPCS: 12345; 36415; 36592; 71045; 80053; 83605; 84145; 85025; 85378; 86140; 94640; 94664; 96372; 96375; 99283; J0456; J0696; J1100; J1650; J3535; J7050

== ENCOUNTER 2020-06-06 12:33 | Emergency (ER) | payer MEDICARE, OTHER, SELFPAY ==
[2020-06-06] VITALS (7 sets, daily range): BP systolic 105–130; BP diastolic 42–63; PULSE 63–104; RESP 16–18; TEMP 36.4; O2SAT 96–98; BMI 33.6
--- NOTE | 2020-06-06 13:11 | W.ED.URI ---
HPI - URI/Sore Throat General: Chief Complaint: Upper Respiratory Infection Stated Complaint: SOB, POSS THROAT INFECTION Time Seen by Provider: 06/06/20 12:54 History of Present Illness: HPI Narrative: Patient is a 74-year-old female comes to the ED with sore throat and sinus pain. Patient was diagnosed with COVID-19 on May 25 and was hospitalized. She was released from the hospital last Thursday and has been recovering at home. Patient says yesterday she started developing a sore throat but continued to get worse. She is also complaining of bilateral sinus pain and pressure. She says she has a lot of nasal and sinus congestion as well that has been going on for about a week. She says she has some swollen tender lymph nodes in her neck as well. She also has multiple cold sores on her lip. Denies any recent fevers or shortness of breath. Patient is on home oxygen currently and says she has been able to slowly titrate down her O2, but has not been able to completely remove oxygen. Associated symptoms: Deny abdominal pain, chills, chest pain, diarrhea, fever(s), headache(s), nasal congestion, nausea or vomiting Review of Systems Const: Denies: fever(s), chills or fatigue Eyes: Denies: change in vision or eye discomfort ENMT: Reports: throat pain and oral sores (Cold sores on the lips.); Denies: odynophagia, nasal discharge or nasal congestion Card: Denies: chest pain, palpitations, edema, swelling of feet/ankles, dyspnea on exertion or orthopnea Resp: Denies: dyspnea, productive cough or non-productive cough GI: Denies: abdominal pain, nausea, vomiting, diarrhea, constipation or hematochezia : Denies: flank pain, dysuria or hematuria Musc: Denies: neck pain, back pain or extremity swelling Skin/Breast: Denies: rash or new lesions Neuro: Denies: headache(s), numbness in extremities or weakness in extremities PFS ED PFSH: Medical History GERD (gastroesophageal reflux disease) Hyperlipidemia Hypertension Hypothyroidism Leg swelling Osteoarthritis Palpitations Tendinitis Surgical History H/O partial cystectomy History of hysterectomy History of thyroidectomy Family History Other CAD (coronary artery disease) Cancer Diabetes Family history of premature coronary artery disease Hypertension Stroke Social History Smoking and tobacco status: never smoked Alcohol intake: never Physical Exam Const: COMMON NORMALS: no acute distress, patient oriented x3 and alert GENERAL APPEARANCE: cooperative and comfortable HENMT: COMMON NORMALS: normocephalic and TM's normal bilaterally HEAD & SCALP: normocephalic FACE & SINUS: sinus tenderness maxillary (Bilateral) TYMPANIC MEMBRANE: TM's normal bilaterally MOUTH: Normal oral and palatal mucosa present and lip abnormal (multiple cold sores on lower lip) THROAT: posterior oropharynx normal and uvula midline Eye: COMMON NORMALS: Equal, round and reactive pupils present PUPIL: Yes Equal, round and reactive pupils present Neck/C-Spine: COMMON NORMALS: supple GENERAL: Yes normal visual inspection Lymph: LYMPHATIC: lymphadenopathy (Tender lymph nodes in right anterior cervical neck chain.) Resp: COMMON NORMALS: normal respiratory effort, No retractions, No use of accessory muscles and clear to auscultation bilaterally EFFORT & INSPECTION: Yes able to speak in complete sentences, No tachypneic, No respiratory distress and No labored AUSCULTATION: clear to auscultation bilaterally Cardio: COMMON NORMALS: regular rate, regular rhythm, S1 normal heart sound present, S2 normal heart sound present, No gallops present (Cardio), No clicks present (Cardio), No murmurs present (Cardio) and Peripheral pulses 2+ throughout RATE: regular rate RHYTHM: regular rhythm HEART SOUNDS: S1 normal heart sound present and S2 normal heart sound present PERIPHERAL PULSES: Peripheral pulses 2+ throughout GI: COMMON NORMALS: Normal to inspection, nondistended, normoactive bowel sounds present, Soft to palpation, non-tender and no masses PALPATION: Yes Soft to palpation : COMMON NORMALS: Yes no CVA tenderness BLADDER/KIDNEY EXAM: Yes no CVA tenderness Back/Pelvis: COMMON NORMALS: no CVA tenderness Extremity: COMMON NORMALS: normal to inspection and no pedal edema Neuro: COMMON NORMALS: patient oriented x3 and moves all extremities SENSORIUM/ORIENTATION: Yes alert Skin: GENERAL SKIN EXAM: dry skin Course Vital Signs: Vital signs: Vital Signs Temperature 97.6 F 06/06/20 12:47 Pulse Rate 70 06/06/20 14:40 Respiratory Rate 16 06/06/20 14:40 Blood Pressure 130/59 06/06/20 14:40 Pulse Oximetry 96 06/06/20 14:40 MDM - URI/Sore Throat MDM Narrative: Medical decision making narrative: Patient is a 74-year-old female comes to the ED with sinus pain and sore throat. patient had some tender right anterior cervical chain lymph nodes. Maxillary sinus tenderness upon exam. Patient also has multiple cold sores on lower lip. Strep was negative. Patient diagnosed with sinus infection and cold sores. sent home with a prescription for Augmentin, Afrin nasal spray and abreva. Return to ED precautions given. Patient was told to follow-up with PCP in 7 to 10 days for reevaluation. Patient understood and agreed with plan. Lab Data: Attestation: I reviewed the patient's lab results. Labs: Lab Results 06/06/20 Range/Units 13:05 Group A Strep Rapi d Negative (Negative) Discharge Plan Discharge Patient Disposition: Home Clinical Impression: Cold sore Acute sinus infection Qualifiers: Sinusitis location: maxillary Recurrence: non-recurrent Qualified Code(s): J01.00 - Acute maxillary sinusitis, unspecified Condition: Stable Prescriptions: New Augmentin 500-125 mg tablet 1 tab PO BID 10 Days Qty: 20 RF: 0 Abreva 10 % cream 1 applic topical 5XD Qty: 2 RF: 0 Afrin (oxymetazoline) 0.05 % spray,non-aerosol 2 spray intranasal BID PRN (Reason: nasal congestion) 3 Days Qty: 15 RF: 0 No Action nitroglycerin [Nitrostat] 0.4 mg tablet, sublingual 0.4 mg SUBLINGUAL Q5M PRN (Reason: Chest Pain) RF: 0 potassium chloride 10 mEq capsule, extended release 10 meq PO DAILY PRN (Reason: unknown) RF: 0 furosemide 40 mg tablet 20 - 40 mg PO DAILY PRN (Reason: Edema) RF: 0 levothyroxine 112 mcg capsule 112 mcg PO DAILY RF: 0 esomeprazole magnesium [Nexium] 20 mg capsule,delayed release(DR/EC) 20 mg PO DAILY RF: 0 metoprolol tartrate 25 mg tablet 25 mg PO Q12H RF: 0 PreserVision AREDS-2 [id number] id-[id number]-[id number]-mg capsule 1 tab PO BID RF: 0 losartan 50 mg tablet 50 mg PO DAILY Qty: 90 RF: 3 Tylenol Extra Strength 500 mg Tablet 1,000 mg PO Q4H PRN (Reason: Pain) RF: 0 Osteo Bi-Flex 250-200 mg Tablet 1 tab PO DAILY RF: 0 Magtab 84 mg Tablet Extended Release 84 mg PO Q12H RF: 0 cholecalciferol (vitamin D3) 1,250 mcg (50,000 unit) capsule 50,000 unit PO Q7D RF: 0 Prevagen 1 cap PO DAILY RF: 0 Decadron 6 mg tablet 6 mg PO DAILY Qty: 5 RF: 0 Discharge Orders: Discharge ED (Routine); Ordered 06/06/20 Ordered By: Sanchez Monreal Referrals: Lenard De Luna, [Primary Care Provider] - Discharge Diet: Regular Discharge Activity: Resume usual activity Patient Instructions: Sinusitis (ED) Activity Restrictions/Additional Instructions: Follow-up with medical provider as directed in 7 to 10 days. Take medications as prescribed. Drink plenty fluids and stay hydrated. Take [id number] Tylenol for any fevers. Return to the ER or your medical provider if condition worsens. Please read and understand discharge instructions. If any questions, please ask. 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
[2020-06-06] MEDS: acetaminophen 500 mg Tablet 1000 MG PO (13:45)
[2020-06-06] MEDS: amoxicillin-clav 500-125 mg Tablet 1 TAB PO (14:15)
[2020-06-06 14:30] LABS: Rapid Strep A Test Negative (Negative)
== END 2020-06-06 14:43 | disposition home or self-care (01) ==
PROVIDERS: Emergency Provider Physician Assistant; PCP Family Medicine
DX: J01.00 Acute maxillary sinusitis, unspecified (principal); B00.1 Herpesviral vesicular dermatitis; E78.5 Hyperlipidemia, unspecified; I10 Essential (primary) hypertension
CPT/HCPCS: 12345; 87081; 87880; 99281; 99283

== ENCOUNTER → 2021-04-22 13:51 | Outpatient (BNVA) | payer MEDICARE, OTHER, SELFPAY | PROVIDERS: PCP Family Medicine; Visit Provider Registered Nurse Neonatal Intensive Care | DX: N39.0 Urinary tract infection, site not specified (principal) | CPT/HCPCS: 81000 ==

== ENCOUNTER 2022-01-28 00:40 | Observation (INO) | payer MEDICARE, OTHER, SELFPAY ==
[2022-01-28] VITALS (16 sets, daily range): BP systolic 106–152; BP diastolic 53–109; PULSE 51–127; RESP 15–22; TEMP 36.4–36.7; O2SAT 92–97; BMI 33.3
--- NOTE | 2022-01-28 00:44 | ED_ITS ---
HPI - Chest Pain General: Chief Complaint: ER Hold Stated Complaint: cp Time Seen by Provider: 01/28/22 00:43 History of Present Illness: Ms Cantu is a 76-year-old lady with significant past medical history of hypertension, hyperlipidemia, thyroid disorder, history of ventricular arrhythmia who presents to the emergency department due to abnormal feeling. She reports being awoken from sleep with a tightness or ball feeling in her throat and mild discomfort in her head. She checked her blood pressure went up and that was high as well as her pulse. She reports compliance with her medication regimen which includes metoprolol. Overall intensity symptoms is mild to moderate. Course has persisted. Denies chest pain or shortness of breath. No other specific changes in health, exacerbating, or alleviating factors identified. Onset (ago): hour(s) Timing of current episode: constant Prior episodes: No Onset: during rest Review of Systems General: Reports: 10 or more systems reviewed and unremarkable except in HPI and below PFSH ED PFSH: Medical History GERD (gastroesophageal reflux disease) Hyperlipidemia Hypertension Hypothyroidism Leg swelling Osteoarthritis Palpitations Tendinitis Surgical History H/O partial cystectomy History of hysterectomy History of thyroidectomy Family History Son Anesthesia complication Lung disease Father CAD (coronary artery disease) Lung disease Daughter Cancer Lung disease Mother Cancer Bleeding disorder Brother Cancer Grandmother Cancer Diabetes Stroke Other Family history of premature coronary artery disease Hypertension Denies family history of Clotting disorder Dementia Chronic kidney disease (CKD) Suicide Social History Alcohol intake: never Physical Exam Const: COMMON NORMALS: alert GENERAL APPEARANCE: cooperative and well developed HENMT: COMMON NORMALS: normocephalic and atraumatic HEAD & SCALP: normocephalic and atraumatic Eye: COMMON NORMALS: conjunctivae normal CONJUNCTIVA: Yes conjunctivae normal SCLERA: sclerae normal Neck/C-Spine: COMMON NORMALS: supple GENERAL: Yes trachea midline Resp: COMMON NORMALS: clear to auscultation bilaterally EFFORT & INSPECTION: Yes able to speak in complete sentences AUSCULTATION: clear to auscultation bilaterally Cardio: RATE: tachycardic RHYTHM: abnormal rhythm irregularly irregular GI: COMMON NORMALS: Soft to palpation PALPATION: Yes Soft to palpation and No Tenderness to palpation present (GI) PERCUSSION: normal to percussion Extremity: GENERAL: Yes normal exam except as noted and No edema Neuro: COMMON NORMALS: moves all extremities SENSORIUM/ORIENTATION: Yes alert and No Orientation impaired Psych: COMMON NORMALS: mental status grossly normal and Normal thought process present THOUGHT PROCESS: Normal thought process present Course ED course: - Patient was seen and evaluated by me at bedside - Patient placed on cardiac monitors, IV access obtained - Initial evaluation notable for exam as above, new onset A. fib with RVR. - Labs and xrays personally interpreted by me. EKG showing atrial fibrillation with rapid ventricular response, no STEMI. -Aspirin, analgesia, and metoprolol pushes given - Labs notable for no leukocytosis, normal hemoglobin. Electrolytes without acute pathology to explain symptoms. 2-hour delta troponin in the intermediate range which is likely demand related. No evidence of urinary tract infection. - Imaging notable for no lobar consolidation or pneumothorax. - Upon serial reexamination after treatment the patient was mildly improved though response to metoprolol was relatively short-lived at which point Cardizem push and drip ordered. - Based on patient history, evaluation, and testing as interpreted the most likely cause of the patient's condition is new onset atrial fibrillation with rapid ventricular spots - The results of ED evaluation were discussed with the patient including plan for admission due to requirement for level of care not available if discharged to prevent significant worsening/deterioration. - Admitting service was contacted and Dr Oneal with the hospitalist service agreed to admit the patient - Patient was admitted without further deterioration or significant events. Note: Click bubbles or prepopulated barroso in note writing are used for assistance with data collection and billing and are inherently more limited than narrative and other text portions of this note. Please use narrative for additional clinical history and defer to narrative/free test for any case of contradictory information. If information appears in only free text or click bubble it should be considered present or absent as reported. Please contact note database report writer for clarifications of clinical information or contradictory information. MDM is a brief summary, contradictory or erroneous seeming information should be clarified and full note should be reviewed. Vital Signs: Vital signs: Vital Signs Temperature 98.6 F 01/29/22 15:26 Pulse Rate 58 L 01/29/22 15:26 Respiratory Rate 57 H 01/29/22 15:26 Blood Pressure 160/71 01/29/22 16:46 Pulse Oximetry 97 01/29/22 15:26 Oxygen Delivery Me thod 01/29/22 15:26 MDM - Chest Pain Medical Decision Making 76-year-old lady presenting with new onset A. fib with RVR. No clear provoking factor identified on ED evaluation. Only transient improvement with push medi cations, started on Cardizem drip and admitted for further investigation and management. Medical Records I reviewed the patient's medical records. Lab Data I reviewed the patient's lab results. : 01/29/22 06:10 01/29/22 06:10 Radiology Impressions Chest X-Ray 01/28/22 00:52 IMPRESSION: No chest radiographic evidence of acute cardiopulmonary disease. Laboratory Results WBC 7.9 10^3/uL (4.0-10.0) 01/28/22 00:49 RBC 4.88 10^6/uL (4.1-5.3) 01/28/22 00:49 Hgb 14.2 g/dL (11.5-15.3) 01/28/22 00:49 Hct 44.5 % (37.0-47.0) 01/28/22 00:49 MCV 91.2 fl (81-99) 01/28/22 00:49 MCH 29.1 pg (28.0-34.0) 01/28/22 00:49 MCHC 31.9 g/dL (30.0-36.0) 01/28/22 00:49 RDW 13.3 % (12.1-15.1) 01/28/22 00:49 Plt Count 379 10^3/cmm (130-400) 01/28/22 00:49 MPV 9.5 fL (7.4-10.4) 01/28/22 00:49 Neut % (Auto) 51.5 % 01/28/22 00:49 Lymph % (Auto) 36.6 % 01/28/22 00:49 Terrell % (Auto) 8.8 % 01/28/22 00:49 Eos % (Auto) 2.4 % 01/28/22 00:49 Baso % (Auto) 0.4 % 01/28/22 00:49 Neut # (Auto) 4.05 10^3/uL (1.8-7.7) 01/28/22 00:49 Lymph # (Auto) 2.9 10^3/uL (0.8-4.8) 01/28/22 00:49 Terrell # (Auto) 0.7 10^3/uL (0.2-0.9) 01/28/22 00:49 Eos # (Auto) 0.2 10^3/uL (0.0-0.8) 01/28/22 00:49 Baso # (Auto) 0.0 10^3/uL (0.0-0.1) 01/28/22 00:49 Nucleated RBC % (auto) 0 % 01/28/22 00:49 Nucleated RBCs # 0.0 /100WBC 01/28/22 00:49 PT 12.40 SECONDS (12.1-14.9) 01/28/22 00:49 INR 0.89 (0.8-1.2) 01/28/22 00:49 Sodium 141 mmol/L (136-145) 01/28/22 00:49 Potassium 3.9 mmol/L (3.5-5.1) 01/28/22 00:49 Chloride 102 mmol/L (98-107) 01/28/22 00:49 Carbon Dioxide 27 mmol/L (22-29) 01/28/22 00:49 Anion Gap 15.9 (5-19) 01/28/22 00:49 BUN 19 mg/dL (8-23) 01/28/22 00:49 Creatinine 0.8 mg/dL (0.5-0.9) 01/28/22 00:49 GFR Calculation Not Reportable 01/28/22 00:49 Glucose 98 mg/dL (65-115) 01/28/22 00:49 Calculated Osmolality 294 mOsm/kg (285-295) 01/28/22 00:49 Calcium 10.2 mg/dL (8.5-10.5) 01/28/22 00:49 Magnesium 2.3 mg/dL (1.7-2.3) 01/28/22 00:49 Total Bilirubin 0.2 mg/dL (0.15-1.2) 01/28/22 00:49 AST 23 U/L (0-32) 01/28/22 00:49 ALT 19 U/L (0-33) 01/28/22 00:49 Alkaline Phosphatase 114 IU/L (35-105) H 01/28/22 00:49 Troponin T Baseline 9 ng/L (0-10) 01/28/22 00:49 NT-Pro-B Natriuret Pep 270 pg/mL (0-450) 01/28/22 00:49 Total Protein 7.4 g/dL (6.6-8.7) 01/28/22 00:49 Albumin 4.2 g/dL (3.5-5.2) 01/28/22 00:49 Globulin 3.2 g/dL (1.3-4.6) 01/28/22 00:49 TSH 1.55 uIU/mL (0.27-4.20) 01/28/22 00:49 Urine Color Colorless (Yellow) 01/28/22 00:57 Urine Appearance Clear (CLEAR) 01/28/22 00:57 Urine pH 8 (5-7) H 01/28/22 00:57 Ur Specific [place] 1.015 (1.005-1.030) 01/28/22 00:57 Urine Protein Neg (Negative) 01/28/22 00:57 Urine Glucose (UA) Norm (Normal) 01/28/22 00:57 Urine Ketones Negative (Negative) 01/28/22 00:57 Urine Blood Neg (Negative) 01/28/22 00:57 Urine Nitrate Negative (Negative) 01/28/22 00:57 Urine Bilirubin Neg (Negative) 01/28/22 00:57 Prot Sulfosalicylic Acd Negative (Negative) 01/28/22 00:57 Urine Urobilinogen Norm mg/dL (Negative) 01/28/22 00:57 Ur Leukocyte Esterase Negative (Negative) 01/28/22 00:57 Critical Care Time Critical Care Time: Critical Care Time: Yes Total Critical Care Time: 35 Attestation: The high probability of a clinically significant, sudden or life threatening deterioration of the patient's cardiovascular system(s) required my full and direct attention, intervention and personal management. The critical care time is as shown. This time is in addition to time spent performing any reported procedures but includes the following: [x] Data and vital sign review and interpretation [x] Patient assessment, examination and intervention [x] Documentation [x] Medication orders and management Discharge Plan Discharge Patient Disposition: Admitted As Inpatient Admit Provider: Franky Oneal Clinical Impression: Atrial fibrillation, new onset, Atrial fibrillation with rapid ventricular response, Atypical chest pain Condition: Stable Discharge Diet: Advance as tolerated Discharge Activity: Resume usual activity and Increase activity as tolerated Coding Level of Care Code ED It Service Continuity Supervisor for Chg Fwd Exam Comprehensive
--- NOTE | 2022-01-28 00:52 | XRR_ITS ---
PROCEDURE INFORMATION: Exam: XR Chest Exam date and time: 01/28/2022 12:58 AM Age: 76 years old Clinical indication: Pain; Chest pressure; Patient HX: C/O palpitations. Afib on monitor. ; Additional info: New afib TECHNIQUE: Imaging protocol: Radiologic exam of the chest. Views: 1 view. COMPARISON: CR (CHEST, ) 05/27/2020 10:06 AM FINDINGS: Lungs: There are normal lung volumes without interstitial or airspace opacities. Age-related interstitial prominence is seen in the lungs. Pleural spaces: There are no pleural effusions or pneumothorax. Heart/Mediastinum: The heart size is normal. There is a mildly tortuous thoracic aorta. The trachea is in the midline. Bones/joints: No acute abnormalities. Small degenerative osteophytes and mild degenerative disc disease changes are seen throughout the thoracic spine. Soft tissues: Multiple external densities are seen overlying the chest, limiting assessment. XR/XR chest 1V portable [id number] IMPRESSION: No chest radiographic evidence of acute cardiopulmonary disease.
--- NOTE | 2022-01-28 00:53 | ECG_ITS ---
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 Measurements Intervals [place] Rate: 121 P: NC: QRS: -34 QRSD: 109 T: 32 QT: 309 QTc: 439 Interpretive Statements ATRIAL FIBRILLATION WITH RAPID VENTRICULAR RESPONSE LEFT AXIS DEVIATION [QRS AXIS < -30] MINIMAL VOLTAGE CRITERIA FOR LVH, CONSIDER NORMAL VARIANT [MEETS CRITERIA IN ONE OF: R(aVL), S(V1), R(V5), R(V5/V6)+S(V1)] NONSPECIFIC ST & T-WAVE ABNORMALITY INTERPRETATION BASED ON A DEFAULT AGE OF 40 YEARS No previous ECG available for comparison Electronically Signed On 01-28-2022 18:58:36 CDT by Javi Daly M.D. [id number] f
[2022-01-28 00:59] LABS: Basophils % 0.4 %; Eosinophils # 0.2 10^3/uL (0.0-0.8); Eosinophils % 2.4 %; Hematocrit 44.5 % (37.0-47.0); Hemoglobin 14.2 g/dL (11.5-15.3); Lymphocytes # 2.9 10^3/uL (0.8-4.8); Lymphocytes % 36.6 %; Mean Corpuscular HGB Conc 31.9 g/dL (30.0-36.0); Mean Corpuscular Hemoglobin 29.1 pg (28.0-34.0); Mean Corpuscular Volume 91.2 fl (81-99); Mean Platelet Volume 9.5 fL (7.4-10.4); Monocytes # 0.7 10^3/uL (0.2-0.9); Monocytes % 8.8 %; Neutrophils # 4.05 10^3/uL (1.8-7.7); Neutrophils % 51.5 %; Nucleated Red Blood Cells % 0 %; Platelet Count 379 10^3/cmm (130-400); Red Blood Count 4.88 10^6/uL (4.1-5.3); Red Cell Distribution Width 13.3 % (12.1-15.1); White Blood Count 7.9 10^3/uL (4.0-10.0)
[2022-01-28] MEDS: metoprolol tartrate 1 mg/1 mL SDV 5 mL 5 MG IVP ×2 (01:09→01:40)
[2022-01-28 01:19] LABS: Alanine Aminotransferase 19 U/L (0-33); Albumin Level 4.2 g/dL (3.5-5.2); Alkaline Phosphatase 114 IU/L (35-105); Anion Gap 15.9 (5-19); Aspartate Amino Transferase 23 U/L (0-32); Blood Urea Nitrogen 19 mg/dL (8-23); Calcium 10.2 mg/dL (8.5-10.5); Carbon Dioxide 27 mmol/L (22-29); Chloride 102 mmol/L (98-107); Globulin 3.2 g/dL (1.3-4.6); Glucose 98 mg/dL (65-115); Magnesium 2.3 mg/dL (1.7-2.3); Osmolality Calculated 294 mOsm/kg (285-295); Potassium 3.9 mmol/L (3.5-5.1); Sodium 141 mmol/L (136-145); Total Bilirubin 0.2 mg/dL (0.15-1.2); Total Protein 7.4 g/dL (6.6-8.7)
[2022-01-28 01:23] LABS: Troponin(5th) Baseline 9 ng/L (0-10)
[2022-01-28 01:25] LABS: Add Urine Microscopic? NO; Charge for UA Resulting for Rev
[2022-01-28 01:27] LABS: Urine Appearance Clear (CLEAR); Urine Color Colorless (Yellow)
[2022-01-28 01:28] LABS: Bilirubin Urine Neg (Negative); Blood Urine Neg (Negative); Glucose Urine UA Norm (Normal); Ketones Urine Negative (Negative); Leukocyte Esterase Urine Negative (Negative); Nitrate Urine Negative (Negative); Protein Urine Neg (Negative); Specific Gravity, Urine 1.015 (1.005-1.030); Sulfosalicylic Acid Urine Negative (Negative); Urobilinogen Urine Norm (Negative); pH Urine 8 (5-7)
[2022-01-28 01:54] LABS: NT Pro B Type Natriuretic Pept 270 pg/mL (0-450); Thyroid Stimulating Hormone 1.55 uIU/mL (0.27-4.20)
[2022-01-28] MEDS: aspirin 81 mg Chew Tablet 324 MG PO (02:24)
[2022-01-28] MEDS: dilTIAZem 5 mg/mL SDV 5 mL 15 MG IVP (02:25)
--- NOTE | 2022-01-28 03:40 | P.HP_ITS ---
Providers/Chief Complaint Admitting Physician: Franky Oneal MD Primary Care Provider: Lenard De Luna DO Chief Complaint: cp History of Present Illness Areli Cantu is a 76 year old female with a past medical history of palpitations, hypertension, hyperlipidemia, who presents [facility] for chest pain and palpitations. Patient tells that she has a history of palpitations in the past, she sees Dr. Coughlin she has had an stress test within the last few years. She tells me he woke up this morning with chest tightness, neck pain, feeling like a globus sensation, and chest palpitations. Here she was found to have A. fib with RVR, placed on a Cardizem drip currently she remains in A. fib, rates 60s to 100, currently denies any chest pain, no shortness of breath, denies any facial droop, no slurring of words, no focal weakness no history of strokes, no history of GI bleed, no history of anemia, no history of transfusions Review of Systems Const: Denies: fever(s) Eyes: Denies: change in vision ENMT: Denies: nasal congestion Card: Reports: chest pain and palpitations Resp: Denies: dyspnea, productive cough, non-productive cough or wheezing GI: Denies: abdominal pain, nausea, vomiting, hematemesis, constipation or melena : Denies: dysuria Neuro: Denies: headache(s) or dizziness Medications/Allergies Home Medications Medication Instructions Recorded Confirmed Last Taken Type levothyroxine 112 mcg capsule 112 mcg PO DAILY 03/20/20 04/22/21 Unknown History vit C 250 mg-vit E 90 mg-zinc 40 1 tab PO BID 03/20/20 04/22/21 Unknown History mg-copper 1 [id number] capsule (PreserVision AREDS-2) acetaminophen 500 mg tablet 1,000 mg PO Q4H PRN Pain 05/25/20 04/22/21 05/25/20 10:00 History (Tylenol Extra Strength) glucosamine-chondroitin 250 mg-200 1 tab PO DAILY 05/25/20 04/22/21 Unknown History mg tablet (Osteo Bi-Flex) magnesium L-lactate 84 mg 84 mg PO Q12H 05/25/20 04/22/21 Unknown History tablet,extended release (Magtab) cholecalciferol (vitamin D3) 125 125 mcg PO DAILY 09/20/20 04/22/21 Unknown History mcg (5,000 unit) capsule pantoprazole 20 mg tablet,delayed 20 mg PO BID 09/20/20 04/22/21 Unknown History release (Protonix) furosemide 40 mg tablet 20 - 40 mg PO DAILY PRN Edema #90 10/05/20 04/22/21 Unknown Rx tabs potassium chloride 10 mEq 20 meq PO DAILY PRN edema #90 caps 10/05/20 04/22/21 Unknown Rx capsule,extended release losartan 100 mg tablet 100 mg PO DAILY 90 days #90 tabs 06/26/21 06/26/21 U nknown Rx metoprolol tartrate 25 mg tablet 25 mg PO Q12H #180 tabs 06/26/21 06/26/21 Unknown Rx nitroglycerin 0.4 mg sublingual 0.4 mg sublingual Q5M PRN Chest 06/26/21 06/26/21 Unknown Rx tablet (Nitrostat) Pain #30 tabs Allergies Allergy/AdvReac Type Severity Reaction Status Date / Time No Known Allergies Allergy Verified 06/26/21 08:19 PFSH Acute PFSH: Medical History GERD (gastroesophageal reflux disease) Hyperlipidemia Hypertension Hypothyroidism Leg swelling Osteoarthritis Palpitations Tendinitis Surgical History H/O partial cystectomy History of hysterectomy History of thyroidectomy Family History Son Anesthesia complication Lung disease Father CAD (coronary artery disease) Lung disease Daughter Cancer Lung disease Mother Cancer Bleeding disorder Brother Cancer Grandmother Cancer Diabetes Stroke Other Family history of premature coronary artery disease Hypertension Denies family history of Clotting disorder Dementia Chronic kidney disease (CKD) Suicide Social History Alcohol intake: never Vitals/I&O/Wt Last Vital Signs Temp 98.1 F 01/28/22 00:50 Pulse 77 01/28/22 03:15 Resp 16 01/28/22 03:15 BP 140/62 01/28/22 03:15 Pulse Ox 97 01/28/22 03:15 O2 Del Method 01/28/22 00:50 Weight last 48 hrs Weight 85.275 kg Physical Exam Const: COMMON NORMALS: no acute distress and patient oriented x3 HENMT: COMMON NORMALS: normocephalic HEAD & SCALP: normocephalic Neck/C-Spine: COMMON NORMALS: no JVD Resp: COMMON NORMALS: normal respiratory effort, No retractions, No use of accessory muscles and clear to auscultation bilaterally AUSCULTATION: clear to auscultation bilaterally Cardio: COMMON NORMALS: no JVD, S1 normal heart sound present and S2 normal heart sound present RATE: tachycardic RHYTHM: abnormal rhythm irregularly irregular HEART SOUNDS: S1 normal heart sound present and S2 normal heart sound present GI: COMMON NORMALS: Normal to inspection, nondistended, normoactive bowel sounds present, Soft to palpation, non-tender, No hepatosplenomegaly present, no masses and no bruits PALPATION: Yes Soft to palpation and Yes No hepatosplenomegaly present Extremity: COMMON NORMALS: capillary refill normal, no clubbing, cyanosis or edema, no calf tenderness and no pedal edema Neuro: COMMON NORMALS: patient oriented x3, CN's II-XII intact bilaterally, moves all extremities and no focal motor deficits Psych: COMMON NORMALS: mental status grossly normal Data : 01/28/22 00:49 01/28/22 00:49 A&P Assessment and plan (1) Atrial fibrillation with rapid ventricular response: Status: Acute (2) Atypical chest pain: Status: Acute Plan A. fib with RVR -Continue Cardizem drip -Increase metoprolol to 50 twice daily -[id number] score 4, start therapeutic Lovenox -Full code -Lovenox for DVT prophylaxis Atypical chest pain -Serial EKGs concerned troponins -Cardiac echo Hypothyroidism, TSH within normal limits Attestations Medical Necessity Statement*: Patient requires hospitalization, outpatient with observation for A. fib with RVR Coding Level of Care Code Acute Consulting Services Project Manager for Chg Fwd Diagnoses Atrial fibrillation with rapid ventricular response I48.91 Atypical chest pain R07.89
--- NOTE | 2022-01-28 03:43 | USCV_ITS ---
Areli Cantu Age: 76 Gender: F : 1945 Exam Date: 01/28/2022 04:31 Ordering Phys: Franky Oneal MD Technologist: WILBERTO Exam Location: [facility] [place] Indication: afib BP: 130 / 92 HR: 88 Rhythm: Atrial fibrillation Technical Quality: Adequate MEASUREMENTS (Male / Female) Normal Values 2D ECHO LV Diastolic Diameter PLAX 4.3 cm 4.2 - 5.9 / 3.9 - 5.3 cm LV Systolic Diameter PLAX 2.7 cm IVS Diastolic Thickness 1.4 cm 0.6 - 1.0 / 0.6 - 0.9 cm IVS Systolic Thickness 2.0 cm LVPW Diastolic Thickness 1.3 cm 0.6 - 1.0 / 0.6 - 0.9 cm LVPW Systolic Thickness 1.9 cm LVOT Diameter 2.1 cm LV Ejection Fraction 2D Teich 66.8 % LV Ejection Fraction MOD 2C 79.5 % LV Ejection Fraction 2C AL 81.8 % LA Diameter 4.3 cm LA Width 3.6 cm LA Height 5.8 cm RA Width 4.0 cm RA Height 6.2 cm Aorta at Sinotubular Diameter 2.6 cm IVC Diameter 1.5 cm M-MODE Aortic Annulus Diameter 3.0 cm LA Ao Ratio MM 1.5 MV E Point Septal Separation 0.3 cm DOPPLER AV Peak Velocity 127.0 cm/s LVOT Peak Velocity 93.0 cm/s AV Area Cont Eq vti 2.2 cm squared AV Area Cont Eq pk 2.5 cm squared MV Area PHT 3.5 cm squared MV E' Velocity 62.5 cm/s Mitral E to MV E' Ratio 9.0 Mitral E to LV E' Lateral Ratio 9.2 Mitral E to LV E' Septal Ratio 9.0 TR Peak Velocity 282.8 cm/s TR Peak Gradient 32.0 mmHg TV Peak E Velocity 76.0 cm/s Right Atrial Pressure 5.0 mmHg Pulmonary Artery Systolic Pressu 37.0 mmHg PV Peak Velocity 103.0 cm/s RV Acceleration Time 0.1 s RV Ejection Time 0.4 s RV AcT/ET 0.3 FINDINGS Left Ventricle Normal left ventricular size. LV systolic function is normal with EF of 55 to 60%. No regional wall motion abnormalities are seen. Diastolic function is indeterminate because of atrial fibrillation. Right Ventricle The right ventricle is normal in size and function. Right Atrium The right atrium is normal in size. Left Atrium The left atrium is normal in size. Mitral Valve Structurally normal mitral valve without significant stenosis or prolapse. There is mild mitral regurgitation. Aortic Valve Aortic valve is thickened. No significant stenosis or regurgitation is seen. Tricuspid Valve Structurally normal tricuspid valve without significant stenosis. Mild tricuspid regurgitation. RVSP is 35 to 40 mmHg. This is consistent with mild pulmonary hypertension. Pulmonic Valve Not well-visualized. Mild pulmonic regurgitation. Pericardium Normal pericardium without effusion. Aorta Normal ascending aorta dimension. IVC CONCLUSIONS LV systolic function is normal with EF 55 to 60%. Diastolic function is indeterminate because of atrial fibrillation. Mild mitral regurgitation. Mild tricuspid regurgitation. Mild pulmonary hypertension. Mild pulmonic regurgitation. Compared to prior echocardiogram from 2016, patient now has mild pulmonary hypertension Javi Daly MD (Electronically Signed) Final Date: 28 January 2022 12:27 S
[2022-01-28 03:55] LABS: INR 0.89 (0.8-1.2)
--- NOTE | 2022-01-28 04:03 | ECG_ITS ---
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 Measurements Intervals [place] Rate: 86 P: DC: QRS: -25 QRSD: 92 T: 20 QT: 380 QTc: 457 Interpretive Statements ATRIAL FIBRILLATION PROBABLE SEPTAL MYOCARDIAL INFARCTION , PROBABLY OLD [35 ms Q WAVE IN V1/V2] Compared to ECG 01/28/2022 00:49:29 Myocardial infarct finding now present Left-axis deviation no longer present T-wave abnormality no longer present Electronically Signed On 01-28-2022 19:02:37 CDT by Javi Daly M.D. [email or web address]/[id number]
[2022-01-28] MEDS: enoxaparin 100 mg/mL Syringe 90 MG SUBCUT ×2 (04:07→17:32)
[2022-01-28] MEDS: metoprolol tartrate 25 mg Tablet 50 MG PO (04:07)
[2022-01-28] MEDS: magnesium lactate 84 mg Tablet PO ×2 (04:07→17:29)
[2022-01-28 04:33] LABS: Troponin 5 2HR 15.49 ng/L (0-10)
[2022-01-28 04:34] LABS: Troponin 5 2HR Delta 6.49 ABS# (0-10)
--- NOTE | 2022-01-28 07:04 | ECG_ITS ---
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 Measurements Intervals [place] Rate: 87 P: AR: QRS: -28 QRSD: 107 T: 30 QT: 373 QTc: 451 Interpretive Statements ATRIAL FIBRILLATION BORDERLINE LEFT AXIS DEVIATION [QRS AXIS < -20] LOW QRS VOLTAGE IN PRECORDIAL LEADS [QRS DEFLECTION < 1.0 mV IN CHEST LEADS] PATTERN CONSISTENT WITH PULMONARY DISEASE Compared to ECG 01/28/2022 04:03:04 Low QRS voltage now present Myocardial infarct finding no longer present Electronically Signed On 01-28-2022 19:02:19 CDT by Javi Daly M.D. [id number]
[2022-01-28] MEDS: acetaminophen 325 mg Tablet 650 MG PO ×3 (07:34→23:15)
--- NOTE | 2022-01-28 07:37 | ECG_ITS ---
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 Measurements Intervals [place] Rate: 50 P: 43 OR: 169 QRS: -29 QRSD: 95 T: 23 QT: 443 QTc: 405 Interpretive Statements SINUS BRADYCARDIA BORDERLINE LEFT AXIS DEVIATION [QRS AXIS < -20] Compared to ECG 01/28/2022 07:04:32 Atrial fibrillation no longer present Electronically Signed On 01-28-2022 18:58:17 CDT by Javi Daly M.D. [id number]
--- NOTE | 2022-01-28 07:42 | PC.NURSE ---
Pt cardiac rhythm converted to sinus bradycardia. Informed Dr. Hough. 12 Lead EKG acquired. Tatyana stone paused. Dr. Hough aware.
[2022-01-28] MEDS: levothyroxine 112 mcg Tablet PO (09:35)
[2022-01-28] MEDS: pantoprazole DR 40 mg Tablet 20 MG PO ×2 (09:37→17:32)
--- NOTE | 2022-01-28 11:33 | PC.NURSE ---
Call placed to med surg for report, room has not been assigned to a nurse, name left for call back
[2022-01-28 11:34] LABS: Troponin 5 6HR 17.82 ng/L (0-10)
[2022-01-28 11:36] LABS: Troponin 5 6HR Delta 8.82 ng/L (0-12)
--- NOTE | 2022-01-28 11:42 | PC.NURSE ---
Patient report called to Flores PATRICK, patient admitting to room 277.1
--- NOTE | 2022-01-28 13:08 | PM.MISC ---
Miscellaneous Note Purpose of Documentation: Cross coverage note. Note: Today morning patient seen in the ER. Patient states she is feeling a lot better. Denies any nausea, vomiting, headache. Cardizem drip was stopped overnight. Currently patient's heart rate running in high 50s. Patient states yesterday when she was having tachycardia she started having chest pain radiating to jaw and neck along with nausea. She last had cardiac stress test around 5 years ago. Follows up with Dr. Coughlin as an outpatient. Plan: Restart home dose of losartan. Target blood pressure less than 140/90 MNG. Will put metoprolol back to 25 mg twice daily secondary to patient bradycardia. Most likely will discharge on home dose along with 25 mg daily as needed for heart rate of more than 100. Given concern for typical chest pain will rule out ischemia with Lexiscan stress test in a.m. N.p.o. after midnight. Troponin cycle. Follow-up echocardiogram. Check A1c, lipid panel. Continue with full dose Lovenox. We will discussed the patient regarding NOAC prior to discharge. Admit to CSU.
[2022-01-28] MEDS: losartan 50 mg Tablet 100 MG PO (13:47)
[2022-01-28] MEDS: metoprolol tartrate 50 mg Tablet PO (17:29)
[2022-01-29] VITALS (10 sets, daily range): BP systolic 135–195; BP diastolic 63–87; PULSE 47–93; RESP 13–57; TEMP 36.4–37; O2SAT 93–99
--- NOTE | 2022-01-29 | ECG_ITS ---
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 Interpretive Statements NAME OF STUDY: LEXISCAN SESTAMIBI STRESS TEST INDICATION: Unstable angina PROCEDURE: At the baseline, the blood pressure was 140/76 mmHg with a heart rate of 46 bpm and oxygen saturation 93%. The electrocardiogram showed sinus bradycardia, leftward axis. Poor anterior R wave progression. The Lexiscan was infused over a period of 20 seconds. A total of 0.4 milligrams of Lexiscan was infused. The stress phase was continued for a total of 5 minutes. Heart rate at the end of the stress phase was 78 bpm, oxygen saturation 95% with a blood pressure of 147/71 mmHg. The EKG at the peak infusion revealed sinus rhythm with no significant ST-T wave changes. The study was terminated due to protocol completion. Sestamibi was injected 20 seconds after the Lexiscan infusion. Blood pressure at the end of the recovery phase was 139/78 mmHg, oxygen saturation 92% with a heart rate of 77 beats per minute. CONCLUSION: 1. No significant EKG changes with the LexiScan infusion. 2. No LexiScan induced chest pain or cardiac arrhythmia. 3. Normal blood pressure and heart rate response. 4. Sestamibi/sestamibi perfusion scan pending; see separate report. Electronically Signed On 02-05-2022 17:37:12 CDT by Stephanie Kelly M.D. [id number]
[2022-01-29 06:18] LABS: Basophils % 0.2 %; Eosinophils # 0.2 10^3/uL (0.0-0.8); Eosinophils % 4.5 %; Hematocrit 39.3 % (37.0-47.0); Hemoglobin 12.6 g/dL (11.5-15.3); Lymphocytes # 1.5 10^3/uL (0.8-4.8); Lymphocytes % 32.8 %; Mean Corpuscular HGB Conc 32.1 g/dL (30.0-36.0); Mean Corpuscular Hemoglobin 29.1 pg (28.0-34.0); Mean Corpuscular Volume 90.8 fl (81-99); Mean Platelet Volume 9.3 fL (7.4-10.4); Monocytes # 0.4 10^3/uL (0.2-0.9); Monocytes % 9.5 %; Neutrophils # 2.44 10^3/uL (1.8-7.7); Neutrophils % 52.8 %; Nucleated Red Blood Cells % 0 %; Platelet Count 289 10^3/cmm (130-400); Red Blood Count 4.33 10^6/uL (4.1-5.3); Red Cell Distribution Width 13.3 % (12.1-15.1); White Blood Count 4.6 10^3/uL (4.0-10.0)
[2022-01-29] MEDS: enoxaparin 100 mg/mL Syringe 90 MG SUBCUT (06:21)
[2022-01-29] MEDS: magnesium lactate 84 mg Tablet PO ×2 (06:21→16:02)
[2022-01-29 06:39] LABS: Alanine Aminotransferase 14 U/L (0-33); Albumin Level 3.6 g/dL (3.5-5.2); Alkaline Phosphatase 89 IU/L (35-105); Anion Gap 12.6 (5-19); Aspartate Amino Transferase 18 U/L (0-32); Blood Urea Nitrogen 19 mg/dL (8-23); Calcium 8.9 mg/dL (8.5-10.5); Carbon Dioxide 28 mmol/L (22-29); Chloride 104 mmol/L (98-107); Globulin 2.5 g/dL (1.3-4.6); Glucose 107 mg/dL (65-115); Magnesium 2.2 mg/dL (1.7-2.3); Osmolality Calculated 293 mOsm/kg (285-295); Phosphorus 3.3 mg/dL (2.5-4.5); Potassium 4.6 mmol/L (3.5-5.1); Sodium 140 mmol/L (136-145); Total Bilirubin 0.2 mg/dL (0.15-1.2); Total Protein 6.1 g/dL (6.6-8.7)
[2022-01-29] MEDS: metoprolol tartrate 25 mg Tablet PO (08:55)
[2022-01-29] MEDS: losartan 50 mg Tablet 100 MG PO (08:55)
[2022-01-29] MEDS: levothyroxine 112 mcg Tablet PO (08:56)
--- NOTE | 2022-01-29 11:41 | PC.CHAP ---
Pastoral Care Encounter/Spiritual Assessment Type of Contact [] Declined portable canteen operator visit [] Patient/Family/Request visit [] Outpatient visit [] Follow-up visit [] Physician referral [] Code/Alert [x] Routine visit [] Staff referral [] Actively dying [] Patient sleeping [] Family support [] [] Out of room [] Palliative care [] [] Receiving care in room [] Pre-surgical visit [] Trauma [] Long length of stay [] ICU visit [] Other: Relational/Emotional Strength []x Patient feels connected with others/family/visitors/staff [] Distress [] Loneliness/isolation [] Abandonment Spirituality of Patient [x] Person of Mamie [] Attends Taoist of their Mamie [x] Believes in Prayer [] Reads Bible or Buddhism materials [] There are Spiritual issues to be addressed 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 [x] Prayer [x] Active listening [x] Non-anxious presence [] Spiritual/emotional support [] Crisis/trauma care [] Spiritual counseling [] Bereavement support [] Provided bereavement packet [] Provided Bible/devotional materials [] Provided toy/stuffed animal, coloring book to patient or family member [] Provided Communion [] Anointing/[place] [] Salvation [x] Completed spiritual assessment [] Other: Impact on Illness or Injury [] Angry [] Fearful [] Anxious [] Often cries [] Exhaustion [] Unable to work [] Unable to attend evangelical [] Unable to walk/stand [] Unable to read [] Unable to drive [] Unable to eat/drink [] Unable to sleep [] Unable to be with family [] Patient intubated [] Other: Summary Time spent with patient 10 min
--- NOTE | 2022-01-29 13:07 | NMCV_ITS ---
NM juliano perf SPECT r/s* [id number] Areli Cantu Age: 76 Gender: F : 1945 Exam Date: 01/29/2022 13:07 Ordering Phys: Jasvir Cancino MD Technologist: MICAH Mitchell Exam Location: [facility] Indications: SYSTOLIC HEART FAILURE STRESS TEST Please see separate stress test report in [facility] for full findings IMAGE PROTOCOL Rest/Stress 1 Lexiscan Day Radiopharmaceutical Dose (mCi) Administration Site Administered by Rest: Tc-99m 10.2 IV MICAH Delgado Sestamibi Stress:Tc-99m 32.6 IV MICAH Delgado Sestamibi Rest: 29-Jan-2022 60 Discovery 630 Stress: 29-Jan-2022 30 Discovery 630 0.4mg Lexiscan. Images obtained in supine and prone position. SPECT RESULTS Technical Quality: Excellent Raw Data Analysis: Normal Image Corrections: No attenuation or motion correction applied Summed Stress Score: 2 Summed Rest Score: 0 Summed Difference Score: 2 PERFUSION FINDINGS Small sized perfusion abnormality of mild severity of mid inferolateral apical lateral wall on supine stress images with improved tracer uptake on prone stress images. This is suggestive of attenuation artifact. FUNCTIONAL RESULTS (calculated via Gated SPECT) Stress Image LV EF (%): 83 Stress EDV (mL):84 TID: 1 Stress ESV (mL):14 FUNCTIONAL FINDINGS: The left ventricle is normal in size. Transient Ischemia Dilatation of 1. The left ventricular ejection fraction is hyperdynamic with a value of 83%. There is hyperdynamic left ventricular wall thickening. Normal end-diastolic end-systolic volumes. IMPRESSIONS 1. Myocardial perfusion imaging is normal. Attenuation artifact noted in mid inferolateral and apical lateral streeter. 2. Hyperdynamic left ventricular systolic function with no regional wall motion abnormality, LVEF=83%. 3. EKG portion of the study will be reported separately. 4. Scan indicates low risk for cardiac events. Stephanie Kelly MD (Electronically Signed) Final Date: 29 January 2022 15:57 S
[2022-01-29] MEDS: regadenoson 0.4 Mg/5 ml Syringe IVP (13:22)
--- NOTE | 2022-01-29 16:02 | P.DS_ITS ---
Discharge Providers Date of Admission: 01/28/22 02:01 Date of Discharge: January 29, 2022 Attending Provider at Admission: Franky Oneal MD Attending Provider at Discharge: Jasvir Cancino MD Primary Care Provider: Lenard De Luna DO Diagnoses at Discharge Discharge Diagnosis (1) Atrial fibrillation with rapid ventricular response: Status: Acute (2) Atypical chest pain: Status: Acute Reason for Visit Reason for Visit: cp Hospital Course Hospital Course Areli Cantu is a 76 year old female with a past medical history of palpitations, hypertension, hyperlipidemia, who presents [facility] for chest pain and palpitations.? Patient tells that she has a history of palpitations in the past, she sees Dr. Coughlin she has had an stress test within the last few years.? She tells me she woke up this morning with chest tightness, neck pain, feeling like a globus sensation, and chest palpitations.? Here she was found to have A. fib with RVR, placed on a Cardizem drip currently she remains in A. fib, rates 60s to 100, currently denies any chest pain, no shortness of breath, denies any facial droop, no slurring of words, no focal weakness no history of strokes, no history of GI bleed, no history of anemia, no history of transfusions. Patient admitted to hospital further evaluation and management of atrial fibrillation with rapid ventricular response. On admission in the ER she was started on Cardizem drip which rapidly converted patient to normal sinus rhythm with bradycardia. During hospitalization patient did not have any further episodes of atrial fibrillation. Because of concerns for unstable angina during tachycardia with typical chest pain patient underwent cardiac stress test on 01/29 which ruled out Physical Exam Const: COMMON NORMALS: no acute distress, patient oriented x3 and alert GENERAL APPEARANCE: cooperative and well developed HENMT: COMMON NORMALS: normocephalic and atraumatic HEAD & SCALP: normocephalic and atraumatic Eye: COMMON NORMALS: conjunctivae normal CONJUNCTIVA: Yes conjunctivae normal SCLERA: sclerae normal Neck/C-Spine: COMMON NORMALS: supple and no JVD GENERAL: Yes trachea midline Resp: COMMON NORMALS: normal respiratory effort, No retractions, No use of accessory muscles and clear to auscultation bilaterally EFFORT & INSPECTION: Yes able to speak in complete sentences AUSCULTATION: clear to auscultation bilaterally Cardio: COMMON NORMALS: no JVD, S1 normal heart sound present and S2 normal heart sound present RATE: tachycardic RHYTHM: abnormal rhythm irregularly irregular HEART SOUNDS: S1 normal heart sound present and S2 normal heart sound present GI: COMMON NORMALS: Normal to inspection, nondistended, normoactive bowel sounds present, Soft to palpation, non-tender, No hepatosplenomegaly present, no masses and no bruits PALPATION: Yes Soft to palpation, No Tenderness to palpation present (GI) and Yes No hepatosplenomegaly present PERCUSSION: normal to percussion Extremity: COMMON NORMALS: capillary refill normal, no clubbing, cyanosis or edema, no calf tenderness and no pedal edema GENERAL: Yes normal exam except as noted and No edema Neuro: COMMON NORMALS: patient oriented x3, CN's II-XII intact bilaterally, moves all extremities and no focal motor deficits SENSORIUM/ORIENTATION: Yes alert and No Orientation impaired Psych: COMMON NORMALS: mental status grossly normal and Normal thought process present THOUGHT PROCESS: Normal thought process present Discharge Data Studies Completed and Pending Completed Studies During Hospitalization Category Date Time Status Sestamibi Stress Test Request Routine Exams 01/29/22 06:40 Draft XR chest 1V portable [id number] Stat Exams 01/28/22 00:52 Completed NM juliano perf SPECT r/s* [id number] Routine Nuc Med 01/29/22 13:07 Completed CV. echo complete* [id number] Routine Ultrasound 01/28/22 03:43 Completed Pending at discharge Category Date Time Status Sestamibi Stress Test Request Routine Exams 01/28/22 13:06 Stop Req Complete Blood Count w/Auto AM LABS Lab 01/30/22 04:00 Ordered Complete Blood Count w/Auto AM LABS Lab 01/31/22 04:00 Ordered Comprehensive Metabolic Panel AM LABS Lab 01/30/22 04:00 Ordered Comprehensive Metabolic Panel AM LABS Lab 01/31/22 04:00 Ordered Magnesium AM LABS Lab 01/30/22 04:00 Ordered Magnesium AM LABS Lab 01/31/22 04:00 Ordered Phosphorus AM LABS Lab 01/30/22 04:00 Ordered Phosphorus AM LABS Lab 01/31/22 04:00 Ordered Radiology Impressions Chest X-Ray 01/28/22 00:52 IMPRESSION: No chest radiographic evidence of acute cardiopulmonary disease. Echocardiogram: ?CONCLUSIONS ?LV systolic function is normal with EF 55 to 60%.? Diastolic?function is indeterminate because of atrial fibrillation. ?Mild mitral regurgitation. ?Mild tricuspid regurgitation.? Mild pulmonary hypertension. ?Mild pulmonic regurgitation. ?Compared to prior echocardiogram from 2017, patient now has mild?pulmonary hypertension ?Javi Daly MD ?(Electronically Signed) ?Final Date:? ? ? 28 January 2022 ? 12:27 Lexiscan stress test: PERFUSION FINDINGS ?Small sized perfusion abnormality of mild severity of mid inferolateral apical?lateral wall on supine stress images with improved tracer uptake on prone?stress images.? This is suggestive of attenuation artifact. ?FUNCTIONAL RESULTS ? ? (calculated via Gated SPECT) ? Stress Image LV EF (%):? ? 83 ? Stress EDV (mL):84 ? TID:? 1 ? Stress ESV (mL):14 ?FUNCTIONAL FINDINGS: ?The left ventricle is normal in size. Transient Ischemia Dilatation of 1. ?The left ventricular ejection fraction is hyperdynamic with a value of 83%. ?There is hyperdynamic left ventricular wall thickening. ?Normal end-diastolic end-systolic volumes. ?IMPRESSIONS ?1. Myocardial perfusion imaging is normal.? Attenuation artifact noted in mid?inferolateral and apical lateral streeter. ?2. Hyperdynamic left ventricular systolic function with no regional wall motion?abnormality, LVEF=83%. ?3. EKG portion of the study will be reported separately. ?4. Scan indicates low risk for cardiac events. ?Stephanie Kelly MD ?(Electronically Signed) ?Final Date:? ? ? 29 January 2022 ? 15:57 Laboratory Results WBC 4.6 10^3/uL (4.0-10.0) 01/29/22 06:10 RBC 4.33 10^6/uL (4.1-5.3) 01/29/22 06:10 Hgb 12.6 g/dL (11.5-15.3) 01/29/22 06:10 Hct 39.3 % (37.0-47.0) 01/29/22 06:10 MCV 90.8 fl (81-99) 01/29/22 06:10 MCH 29.1 pg (28.0-34.0) 01/29/22 06:10 MCHC 32.1 g/dL (30.0-36.0) 01/29/22 06:10 RDW 13.3 % (12.1-15.1) 01/29/22 06:10 Plt Count 289 10^3/cmm (130-400) 01/29/22 06:10 MPV 9.3 fL (7.4-10.4) 01/29/22 06:10 Neut % (Auto) 52.8 % 01/29/22 06:10 Lymph % (Auto) 32.8 % 01/29/22 06:10 Garden % (Auto) 9.5 % 01/29/22 06:10 Eos % (Auto) 4.5 % 01/29/22 06:10 Baso % (Auto) 0.2 % 01/29/22 06:10 Neut # (Auto) 2.44 10^3/uL (1.8-7.7) 01/29/22 06:10 Lymph # (Auto) 1.5 10^3/uL (0.8-4.8) 01/29/22 06:10 Garden # (Auto) 0.4 10^3/uL (0.2-0.9) 01/29/22 06:10 Eos # (Auto) 0.2 10^3/uL (0.0-0.8) 01/29/22 06:10 Baso # (Auto) 0.0 10^3/uL (0.0-0.1) 01/29/22 06:10 Nucleated RBC % (auto) 0 % 01/29/22 06:10 Nucleated RBCs # 0.0 /100WBC 01/29/22 06:10 PT 12.40 SECONDS (12.1-14.9) 01/28/22 00:49 INR 0.89 (0.8-1.2) 01/28/22 00:49 Sodium 140 mmol/L (136-145) 01/29/22 06:10 Potassium 4.6 mmol/L (3.5-5.1) 01/29/22 06:10 Chloride 104 mmol/L (98-107) 01/29/22 06:10 Carbon Dioxide 28 mmol/L (22-29) 01/29/22 06:10 Anion Gap 12.6 (5-19) 01/29/22 06:10 BUN 19 mg/dL (8-23) 01/29/22 06:10 Creatinine 0.7 mg/dL (0.5-0.9) 01/29/22 06:10 GFR Calculation Not Reportable 01/29/22 06:10 Glucose 107 mg/dL (65-115) 01/29/22 06:10 Calculated Osmolality 293 mOsm/kg (285-295) 01/29/22 06:10 Calcium 8.9 mg/dL (8.5-10.5) 01/29/22 06:10 Phosphorus 3.3 mg/dL (2.5-4.5) 01/29/22 06:10 Magnesium 2.2 mg/dL (1.7-2.3) 01/29/22 06:10 Total Bilirubin 0.2 mg/dL (0.15-1.2) 01/29/22 06:10 AST 18 U/L (0-32) 01/29/22 06:10 ALT 14 U/L (0-33) 01/29/22 06:10 Alkaline Phosphatase 89 IU/L (35-105) 01/29/22 06:10 Troponin T Baseline 9 ng/L (0-10) 01/28/22 00:49 Troponin T 120 Minute 15.49 ng/L (0-10) H 01/28/22 04:03 Delta Troponin T 6.49 ABS# (0-10) 01/28/22 04:03 Troponin T Hi Sens 6Hr 17.82 ng/L (0-10) H 01/28/22 11:05 Troponin T Hi Sens 6Hr Delta 8.82 ng/L (0-12) 01/28/22 11:05 NT-Pro-B Natriuret Pep 270 pg/mL (0-450) 01/28/22 00:49 Total Protein 6.1 g/dL (6.6-8.7) L 01/29/22 06:10 Albumin 3.6 g/dL (3.5-5.2) 01/29/22 06:10 Globulin 2.5 g/dL (1.3-4.6) 01/29/22 06:10 TSH 1.55 uIU/mL (0.27-4.20) 01/28/22 00:49 Urine Color Colorless (Yellow) 01/28/22 00:57 Urine Appearance Clear (CLEAR) 01/28/22 00:57 Urine pH 8 (5-7) H 01/28/22 00:57 Ur Specific [place] 1.015 (1.005-1.030) 01/28/22 00:57 Urine Protein Neg (Negative) 01/28/22 00:57 Urine Glucose (UA) Norm (Normal) 01/28/22 00:57 Urine Ketones Negative (Negative) 01/28/22 00:57 Urine Blood Neg (Negative) 01/28/22 00:57 Urine Nitrate Negative (Negative) 01/28/22 00:57 Urine Bilirubin Neg (Negative) 01/28/22 00:57 Prot Sulfosalicylic Acd Negative (Negative) 01/28/22 00:57 Urine Urobilinogen Norm mg/dL (Negative) 01/28/22 00:57 Ur Leukocyte Esterase Negative (Negative) 01/28/22 00:57 Vitals Last Vital Signs Temp 98.6 F 01/29/22 15:26 Pulse 58 L 01/29/22 15:26 Resp 57 H 01/29/22 15:26 BP 160/71 01/29/22 15:29 Pulse Ox 97 01/29/22 15:26 O2 Del Method 01/29/22 15:26 Discharge Plan Discharge Patient Disposition: Home Condition: Stable Prescriptions: New metoprolol tartrate 25 mg tablet 12.5 mg PO BID PRN (Reason: HR more than 100 bpm) Qty: 20 0RF amlodipine 5 mg tablet 5 mg PO DAILY Qty: 30 0RF Continued levothyroxine 112 mcg capsule 112 mcg PO DAILY PreserVision AREDS-2 [id number] nm-cils-sm-mg capsule 1 tab PO BID Rx Instructions: administer with meals pantoprazole [Protonix] 20 mg tablet,delayed release (DR/EC) 20 mg PO DAILY losartan 100 mg tablet 100 mg PO DAILY 90 Days Qty: 90 3RF nitroglycerin [Nitrostat] 0.4 mg tablet, sublingual 0.4 mg SUBLINGUAL Q5M PRN (Reason: Chest Pain) Qty: 30 3RF Rx Instructions: do not exceed 3 doses per episode potassium chloride 10 mEq capsule, extended release 20 meq PO DAILY PRN (Reason: edema) Qty: 90 3RF acetaminophen [Tylenol Extra Strength] 500 mg Tablet 1,000 mg PO Q4H PRN (Reason: Pain) Rx Instructions: at 06,08,10,14,18 glucosamine-chondroitin [Osteo Bi-Flex] 250-200 mg Tablet 1 tab PO BID magnesium L-lactate [Magtab] 84 mg Tablet Extended Release 84 mg PO Q12H multivitamin Tablet 1 tab PO DAILY furosemide 40 mg tablet 20 - 40 mg PO DAILY PRN (Reason: Edema) Qty: 90 3RF Changed metoprolol tartrate 25 mg tablet 12.5 mg PO Q12H Qty: 180 3RF Discharge Orders: Discharge Order (Routine); Ordered 01/29/22 Ordered By: Jasvir Cancino Referrals: Lenard De Luna, [Primary Care Provider] - 2 weeks Discharge Diet: Advance as tolerated Discharge Activity: Resume usual activity and Increase activity as tolerated Patient Instructions: Opioid Safety Activity Restrictions/Additional Instructions: Monitor heart rate daily. If heart rate is more than 100 you can take metoprolol 12.5 mg twice daily as needed. Otherwise continue taking metoprolol 12.5 mg twice daily. Continue taking losartan as before. Amlodipine 5 mg has been added to your medication list. Please check your blood pressure daily at home and maintain a blood pressure diary and follow-up with a primary care provider within next 1 week for further adjustment of antihypertensives. Discharge Attestations Time Spent in Discharge Care*: greater than 30 min Specific Discharge Activities: educating patient Status at Discharge: Cognitive status at discharge: cognitively intact , Behavioral status at discharge: cooperative , Functional status at discharge: independent ambulation , Overall status at discharge: patient is back to baseline Quality Metrics Clinical Quality Measures [ No reported AMI, CVA or VTE this stay] Coding Level of Care Code Acute Chg FW DC note Diagnoses Atrial fibrillation with rapid ventricular response I48.91 Atypical chest pain R07.89
--- NOTE | 2022-01-29 17:16 | PC.NURSE ---
Discharge Note Patient discharged to home via wheelchair accompanied by daughter. Discharge instructions reviewed with patient and/or insurance sales representative. Mobile pharmacy medications and/or prescriptions provided. Belongings/home medications returned.
== END 2022-01-29 17:16 | disposition home or self-care (01) ==
LOC: ER 02:00 → ER IP 02:32 → MEDSURG 10:40
PROVIDERS: Admitting Provider Family Medicine; Emergency Provider Emergency Medicine; PCP Family Medicine; Visit Provider Student in an Organized Health Care Education/Training Program
DX: I48.91 Unspecified atrial fibrillation (principal); R07.89 Other chest pain; I10 Essential (primary) hypertension; E78.5 Hyperlipidemia, unspecified; E03.9 Hypothyroidism, unspecified; M19.90 Unspecified osteoarthritis, unspecified site; K21.9 Gastro-esophageal reflux disease without esophagitis
CPT/HCPCS: 36415; 71045; 78452; 80053; 81003; 83735; 83880; 84100; 84443; 84484; 85025; 85610; 93005; 93306; 96365; 96372; 96375; 99285; A9500; G0378; J1650; J2785; J3010; J3490

== ENCOUNTER → 2022-03-11 10:22 | Outpatient (BNVA) | payer MEDICARE, OTHER, SELFPAY | PROVIDERS: PCP Family Medicine; Visit Provider Internal Medicine Cardiovascular Disease | DX: I48.91 Unspecified atrial fibrillation (principal); R07.89 Other chest pain; I10 Essential (primary) hypertension; E78.2 Mixed hyperlipidemia; M79.89 Other specified soft tissue disorders; Z79.899 Other long term (current) drug therapy | CPT/HCPCS: 93005; 99214; 99215 ==

== ENCOUNTER → 2022-04-04 09:18 | Outpatient (BNVA) | payer MEDICARE, OTHER, SELFPAY | PROVIDERS: PCP Family Medicine; Visit Provider Nurse Practitioner Family | DX: I48.91 Unspecified atrial fibrillation (principal); Z79.01 Long term (current) use of anticoagulants; R00.1 Bradycardia, unspecified; I44.4 Left anterior fascicular block; R94.31 Abnormal electrocardiogram [ECG] [EKG] | CPT/HCPCS: 93005; 99213; 99214 ==

== ENCOUNTER 2022-04-28 10:16 | Outpatient (CLI) | payer MEDICARE, OTHER, SELFPAY ==
--- NOTE | 2022-04-28 10:00 | USCV_ITS ---
Areli Cantu Age: 76 Gender: F : 1945 Exam Date: 04/28/2022 10:44 Ordering Phys: Jessica Coughlin MD ([email or web address]) Technologist: Jimbo Red [place] [facility] [place]: lv function BP: 120 / 70 HR: 69 Rhythm: Sinus Technical Quality: Adequate MEASUREMENTS (Male / Female) Normal Values 2D ECHO LV Diastolic Diameter PLAX 4.6 cm 4.2 - 5.9 / 3.9 - 5.3 cm LV Systolic Diameter PLAX 3.0 cm IVS Diastolic Thickness 1.1 cm 0.6 - 1.0 / 0.6 - 0.9 cm IVS Systolic Thickness 1.5 cm LVPW Diastolic Thickness 1.5 cm 0.6 - 1.0 / 0.6 - 0.9 cm LVPW Systolic Thickness 1.3 cm LVOT Diameter 2.0 cm LV Ejection Fraction 2D Teich 63.3 % LV Ejection Fraction MOD 2C 56.0 % LV Ejection Fraction 2C AL 56.7 % LA Diameter 3.7 cm Aorta at Sinotubular Diameter 2.4 cm IVC Diameter 1.2 cm M-MODE Aortic Annulus Diameter 3.3 cm LA Ao Ratio MM 1.2 MV E Point Septal Separation 0.7 cm DOPPLER AV Peak Velocity 139.0 cm/s LVOT Peak Velocity 94.0 cm/s AV Area Cont Eq vti 1.9 cm squared AV Area Cont Eq pk 2.2 cm squared MV Area PHT 3.6 cm squared Mitral E to A Ratio 0.6 MV E' Velocity 35.5 cm/s Mitral E to MV E' Ratio 6.4 Mitral E to LV E' Lateral Ratio 8.0 Mitral E to LV E' Septal Ratio 5.3 TR Peak Velocity 227.7 cm/s TR Peak Gradient 20.7 mmHg TV Peak E Velocity 121.0 cm/s Right Atrial Pressure 3.0 mmHg Pulmonary Artery Systolic Pressu 23.7 mmHg RV Acceleration Time 0.1 s FINDINGS Left Ventricle Normal left ventricular size, systolic function and wall thickness, with no regional wall motion abnormalities. Grade I/IV diastolic dysfunction (abnormal relaxation filling pattern), normal to mildly elevated filling pressures. Left ventricular ejection fraction is estimated at 55-60 %. Right Ventricle Normal right ventricular size and systolic function. Normal right ventricular systolic pressure. Right Atrium The right atrium is normal in size. Left Atrium The left atrium is normal in size. Mitral Valve Structurally normal mitral valve without significant stenosis or prolapse. There is no mitral regurgitation. Aortic Valve Structurally normal aortic valve without significant sclerosis or stenosis. There is no aortic regurgitation. Tricuspid Valve Structurally normal tricuspid valve. Trace tricuspid valve regurgitation. Pulmonic Valve Pulmonic valve not well visualized. Pericardium Normal pericardium without effusion. Aorta Normal ascending aorta dimension. IVC The inferior vena cava appears normal. CONCLUSIONS Normal left ventricular size, systolic function and wall thickness, with no regional wall motion abnormalities. Grade I/IV diastolic dysfunction (abnormal relaxation filling pattern), normal to mildly elevated filling pressures. Left ventricular ejection fraction is estimated at 55-60 %. From the previous study done 01/28/2022, the pulmonary hypertension is no longer obvious. Otherwise, there has been no change. Dr. Cody Houston MD (Electronically Signed) Final Date: 28 April 2022 13:41 S
== END 2022-04-28 10:17 | disposition home or self-care (01) ==
LOC: RAD 10:16
PROVIDERS: PCP Family Medicine; Visit Provider Internal Medicine Cardiovascular Disease
DX: R07.9 Chest pain, unspecified
CPT/HCPCS: 93306

== ENCOUNTER 2022-04-30 10:53 | Outpatient (CLI) | payer MEDICARE, OTHER, SELFPAY ==
--- NOTE | 2022-04-30 11:07 | MM_ITS ---
WS: [id number] BILATERAL SCREENING DIGITAL TOMOSYNTHESIS MAMMOGRAM WITH CAD HISTORY: SCREENING COMPARISON: None available. Bilateral CC and MLO views with tomosynthesis and synthetic mammography submitted. Computer aided det ection analyzed. Breast composition: There are scattered areas of fibroglandular density. No suspicious masses, microc alcifications or architectural distortion. Benign calcifications RIGHT breast. MM/[place] [id number] IMPRESSION: BI-RADS: 2-Benign FOLLOW UP: 1 Year Follow-up
== END 2022-04-30 10:54 | disposition home or self-care (01) ==
LOC: RAD 10:54
PROVIDERS: PCP Family Medicine; Visit Provider Family Medicine
DX: Z12.31 Encounter for screening mammogram for malignant neoplasm of breast (principal); E03.9 Hypothyroidism, unspecified; E83.42 Hypomagnesemia; Z13.220 Encounter for screening for lipoid disorders; E78.5 Hyperlipidemia, unspecified
CPT/HCPCS: 77063; 77067; 80053; 80061; 83735; 84439; 84443; 85025

== ENCOUNTER 2022-06-17 09:25 | Outpatient (CLI) | payer MEDICARE, OTHER, SELFPAY ==
--- NOTE | 2022-06-17 10:00 | US_ITS ---
WS: [id number] THYROID ULTRASOUND HISTORY: Thyroid nodule left COMPARISON: None available. Right lobe: Prior RIGHT thyroidectomy numerous years ago. No mass in the RIGHT thyroid bed. The RIGHT submandibular gland is identified and normal. No cervical chain lymph nodes on the RIGHT. Left lobe: 2.1 cm x 2.6 cm x 3.6 cm (w x ap x l). Volume: 10.2 cm3. Enlarged heterogeneous LEFT thyroid lobe with increased vascularity. There are a few tiny cystic area s. No discrete well-formed hypoechoic mass. The entire lobe is enlarged. Isthmus: 0.5 cm. US/US thyroid [id number] IMPRESSION: 1. Status post RIGHT thyroidectomy. 2. Enlarged hypervascular LEFT thyroid. Consider mild acute thyroiditis.
== END 2022-06-17 09:26 | disposition home or self-care (01) ==
PROVIDERS: PCP Family Medicine; Visit Provider Family Medicine
DX: E04.1 Nontoxic single thyroid nodule (principal); E89.0 Postprocedural hypothyroidism
CPT/HCPCS: 76536

== ENCOUNTER → 2022-07-30 11:15 | Outpatient (BNVA) | payer MEDICARE, OTHER, SELFPAY | PROVIDERS: PCP Family Medicine; Referring Provider Family Medicine; Visit Provider Internal Medicine | DX: E89.0 Postprocedural hypothyroidism (principal); E04.1 Nontoxic single thyroid nodule; E06.9 Thyroiditis, unspecified; R53.83 Other fatigue | CPT/HCPCS: 99204 ==

== ENCOUNTER 2022-08-07 10:28 | Outpatient (CLI) | payer MEDICARE, OTHER, SELFPAY ==
[2022-08-07 11:28] LABS: Thyroid Stimulating Hormone 1.23 uIU/mL (0.27-4.20)
[2022-08-07 11:58] LABS: Free T4 Free Thyroxine 1.72 ng/dL (0.82-1.77)
[2022-08-08 16:05] LABS: Thyroid Peroxidase Antobodies 1 IU/mL (<9)
[2022-08-14 13:11] LABS: TSH Receptor Binding Antibody 1.11 IU/L (< OR = 2.00)
== END 2022-08-07 10:29 | disposition home or self-care (01) ==
LOC: LAB 10:31
PROVIDERS: PCP Family Medicine; Visit Provider Internal Medicine
DX: E04.1 Nontoxic single thyroid nodule (principal); E06.9 Thyroiditis, unspecified; E03.9 Hypothyroidism, unspecified
CPT/HCPCS: 36415; 83516; 84439; 84443; 86376

== ENCOUNTER 2022-09-03 20:00 | Outpatient (CLI) | payer MEDICARE, OTHER, SELFPAY | END 2022-09-03 20:01 | disposition home or self-care (01) | LOC: SLEEP 09-04 06:32 | PROVIDERS: PCP Family Medicine; Visit Provider Family Medicine | DX: G47.33 Obstructive sleep apnea (adult) (pediatric) (principal) | CPT/HCPCS: 95810 ==

== ENCOUNTER → 2022-09-04 13:56 | Outpatient (BNVA) | payer MEDICARE, OTHER, SELFPAY | PROVIDERS: PCP Family Medicine; Visit Provider Internal Medicine Cardiovascular Disease | DX: I48.91 Unspecified atrial fibrillation (principal); Z79.899 Other long term (current) drug therapy; E78.2 Mixed hyperlipidemia; I10 Essential (primary) hypertension; M79.89 Other specified soft tissue disorders; E03.9 Hypothyroidism, unspecified; I49.9 Cardiac arrhythmia, unspecified; Z79.01 Long term (current) use of anticoagulants | CPT/HCPCS: 99214 ==

== ENCOUNTER 2022-11-21 13:00 | Outpatient (CLI) | payer MEDICARE, OTHER, SELFPAY ==
--- NOTE | 2022-11-21 12:45 | US_ITS ---
WS: [email or web address] ULTRASOUND THYROID TECHNIQUE: Ultrasound of the thyroid. CLINICAL INFORMATION: thyroid nodule COMPARISON: None. FINDINGS: Thyroid: Prior RIGHT thyroidectomy. Right thyroid lobe: Removed Left thyroid lobe: 4.2 cm x 2.2 cm x 2.3 cm. Solid well-circumscribed nodule in the LEFT mid thyroid measuring 2.2 x 2.3 x 2.3 CM. This is similar to previous and better seen today. Associated vascularity. Smaller nodule in the inferior LEFT thyroid today measuring 1.9 x 1.2 cm also appears unchanged No other suspicious nodules. Isthmus: 0.6 mm. Cervical lymphadenopathy: None. US/US thyroid [id number] IMPRESSION: 1. Prior RIGHT thyroidectomy. 2. No change in the solid well-circumscribed LEFT thyroid nodules since Dece er 2021 described above. 3. Nodular isthmus measuring 6 mm is unchanged.
== END 2022-11-21 13:01 | disposition home or self-care (01) ==
LOC: RAD 13:00
PROVIDERS: PCP Family Medicine; Visit Provider Internal Medicine
DX: E04.1 Nontoxic single thyroid nodule (principal); E04.2 Nontoxic multinodular goiter; E89.0 Postprocedural hypothyroidism
CPT/HCPCS: 76536

== ENCOUNTER 2022-12-17 07:41 | Outpatient (CLI) | payer MEDICARE, OTHER, SELFPAY ==
--- NOTE | 2022-12-17 08:45 | US_ITS ---
WS: [email or web address] ULTRASOUND THYROID FNA CLINICAL INFORMATION: nodules TECHNIQUE: Ultrasound-guided FNA FINDINGS: The procedure including risks, benefits, and complications were discussed with the patient who agreed to proceed. Timeout was performed. Using sterile technique patient was prepped and draped in usual sterile fashion. After 1% lidocaine, using ultrasound guidance, a 25-gauge needle was advanc ed into the mid and inferior RIGHT thyroid nodules. 6 passes were made with active aspiration. Paramjit foss was present for slide preparation. No immediate complications. Patient remained in the ultrasound suite 10 minutes postprocedure with intermittent ultrasound to ens ure no hematoma. . US/US biopsy/FNA thyroid [id number] IMPRESSION: 1. Uncomplicated ultrasound-guided thyroid FNA of the 2 left-sided thyroid nod ules 2. Cytology is pending.
== END 2022-12-17 07:42 | disposition home or self-care (01) ==
PROVIDERS: PCP Family Medicine; Visit Provider Internal Medicine
DX: E04.1 Nontoxic single thyroid nodule (principal)
CPT/HCPCS: 10005; 88173

== ENCOUNTER 2022-12-24 08:52 | Outpatient (CLI) | payer MEDICARE, OTHER, SELFPAY | END 2022-12-24 08:53 | disposition home or self-care (01) | LOC: RAD 08:55 | PROVIDERS: PCP Family Medicine; Visit Provider Family Medicine | DX: R07.89 Other chest pain (principal); J98.11 Atelectasis | CPT/HCPCS: 71046 ==

== ENCOUNTER 2022-12-24 20:00 | Outpatient (CLI) | payer MEDICARE, OTHER, SELFPAY | END 2022-12-24 20:01 | disposition home or self-care (01) | LOC: SLEEP 12-25 06:24 | PROVIDERS: PCP Family Medicine; Visit Provider Family Medicine | DX: G47.33 Obstructive sleep apnea (adult) (pediatric) (principal); G47.10 Hypersomnia, unspecified | CPT/HCPCS: 95811 ==

== ENCOUNTER 2023-02-05 15:14 | Outpatient (CLI) | payer MEDICARE, OTHER, SELFPAY ==
--- NOTE | 2023-02-05 15:20 | XR_ITS ---
WS: [email or web address] PA and lateral chest, 02/05/2023 Clinical Data: Atelectasis Comparison: 2 view chest, 12/24/2022 Findings: No nodules, masses or effusions are seen. The heart is normal. The pulmonary vascularity is not increased. No pneumonia or pneumothorax is seen. The aortic arch and descending thoracic aorta s how minimal calcification and tortuosity. Impression: Atherosclerosis.
== END 2023-02-05 15:15 | disposition home or self-care (01) ==
LOC: RAD 15:17
PROVIDERS: PCP Family Medicine; Visit Provider Family Medicine
DX: J98.11 Atelectasis (principal)
CPT/HCPCS: 71046

== ENCOUNTER 2023-03-03 08:04 | Outpatient (CLI) | payer MEDICARE, OTHER, SELFPAY ==
--- NOTE | 2023-03-03 08:15 | CT_ITS ---
WS: [id number] CT NECK TECHNIQUE: Contrast-enhanced CT of the neck with coronal and sagittal reformatted images. CLINICAL INFORMATION: NONTOXIC MULTINODULAR GOITER/OTHER DYSPHAGIA COMPARISON: None. DLP: 260.[address] scans at [facility] use at least one of these dose optimization techniques: automated e xposure control; mA and/or kV adjustment per patient size (includes targeted exams where dose is matc hed to clinical indication); or iterative reconstruction. FINDINGS: Paranasal sinuses are well aerated. Mastoid air cells are well aerated. Normal posterior nasopharynx. Normal parapharyngeal fat. Enlarged multinodular LEFT thyroid. Largest nodule in the upper pole valarie ures approximately 2.5 x 1.6 cm. Parotid glands are normal. Normal submandibular glands. Tongue base appears normal. No evidence supraglottic or glottic mass. Normal subglottic airway. Parotid glands and submandibular glands are normal in appearance. No evidence of cervical lymphadenop athy. Slight retropharyngeal course RIGHT cervical ICA. Mild spondylitic changes cervical spine. IMPRESSION: 1. Multinodular LEFT thyroid similar to the prior studies. 2. Normal salivary glands. 3. No evidence of supraglottic or glottic mass. Normal subglottic airway. 4. No cervical lymphadenopathy. 5. Paranasal sinuses and mastoid air cells are well aerated.
--- NOTE | 2023-03-03 08:15 | FL_ITS ---
WS: [email or web address] Exam: FL barium swallow [id number] Date/Time of Exam: 03/03/2023 9:04 AM Reason For Exam: DYSPHAGIA Fluoroscopy time: 1min [id number] minutes # of spot films: Oropharyngeal phase of swallowing was normal. There is mild posterior extrinsic compression of the ce rvical esophagus at C5 and C6 secondary to anterior osteophytes. No intrinsic esophageal mass or stri cture was demonstrated. The esophagus is not displaced. Overall, motility was normal. No hiatal herni a or gastroesophageal reflux was observed. IMPRESSION: 1. Mild posterior extrinsic compression of the cervical esophagus at C5 and C6 secondary to anterior osteophytes. 2. No intrinsic esophageal stricture or mass. 3. Normal motility. No reflux identified.
[2023-03-03 08:52] LABS: Blood Urea Nitrogen 20 mg/dL (8-23)
[2023-03-03] MEDS: iohexol 350 mg/mL 500 mL Btl (per mL) IV (08:57)
== END 2023-03-03 08:05 | disposition home or self-care (01) ==
LOC: RAD 08:06
PROVIDERS: Radiology Neuroradiology; PCP Family Medicine; Visit Provider Specialist
DX: E04.2 Nontoxic multinodular goiter (principal); R13.19 Other dysphagia; K22.2 Esophageal obstruction
CPT/HCPCS: 70491; 74220; 82565; 84520; Q9967

== ENCOUNTER 2023-06-01 13:35 | Outpatient (CLI) | payer MEDICARE, OTHER, SELFPAY ==
--- NOTE | 2023-06-01 13:38 | MM_ITS ---
WS: [email or web address] VIEWS: MLO and CC views both breasts. 3D digital tomosynthesis is also included in this exam. Comparison made with prior exam of 11/17/2001, 12/16/2002, 09/27/2015, 04/30/2022.. Findings: There was no sign of mass, architectural distortion or suspicious calcification in either breast. The re are scattered areas of fibroglandular density Impression: MM/[place] [id number] BI-RADS: 1-Negative FOLLOW-UP: 1 Year Follow-up This mammogram was also analyzed by the Computer Aided Detection System [employer].
== END 2023-06-01 13:36 | disposition home or self-care (01) ==
LOC: RAD 13:35
PROVIDERS: PCP Family Medicine; Visit Provider Family Medicine
DX: Z12.31 Encounter for screening mammogram for malignant neoplasm of breast (principal)
CPT/HCPCS: 77063; 77067

== ENCOUNTER 2023-12-30 09:18 | Outpatient (CLI) | payer MEDICARE, OTHER, SELFPAY ==
--- NOTE | 2023-12-30 09:27 | XR_ITS ---
WS: [email or web address] Chest 2 views, 12/30/2023 two-view chest, 02/05/2023 Clinical Data: Crackles in left lower lung Comparison: None. Findings: No nodules, masses or effusions are seen. The heart is slightly enlarged. The pulmonary vas cularity is not increased. No pneumonia or pneumothorax is seen. The aortic arch and descending thora cic aorta show calcification and tortuosity. XR/XR chest 2V* [id number] Impression: Atherosclerosis and cardiomegaly.
--- NOTE | 2023-12-30 09:27 | XR_ITS ---
WS: [email or web address] Left shoulder, 2 views, 12/30/2023 Clinical Data: shoulder pain left Comparison: None. Findings: No fractures or dislocations are seen. The AC joint is normal. The adjacent left clavicle, left scapu la and ribs are normal. The soft tissues are unremarkable. XR/XR shoulder LT min 2V* [id number] Impression: Negative left shoulder.
== END 2023-12-30 09:19 | disposition home or self-care (01) ==
PROVIDERS: PCP Family Medicine; Visit Provider Family Medicine
DX: J98.11 Atelectasis (principal); Q25.46 Tortuous aortic arch; I70.0 Atherosclerosis of aorta; I51.7 Cardiomegaly; M25.512 Pain in left shoulder
CPT/HCPCS: 71046; 73030

== ENCOUNTER → 2023-12-31 10:19 | Outpatient (BNVA) | payer MEDICARE, OTHER, SELFPAY | PROVIDERS: PCP Family Medicine; Visit Provider Family Medicine | DX: Z51.81 Encounter for therapeutic drug level monitoring (principal); R10.9 Unspecified abdominal pain; R73.09 Other abnormal glucose; E78.5 Hyperlipidemia, unspecified; Z13.220 Encounter for screening for lipoid disorders; R14.0 Abdominal distension (gaseous); E03.9 Hypothyroidism, unspecified | CPT/HCPCS: 80053; 80061; 83036; 84439; 84443; 85025; 86141; 86304 ==

== ENCOUNTER → 2024-03-24 12:11 | Outpatient (BNVA) | payer MEDICARE, OTHER, SELFPAY | PROVIDERS: PCP Family Medicine; Visit Provider Internal Medicine Cardiovascular Disease | DX: R00.1 Bradycardia, unspecified (principal); R07.9 Chest pain, unspecified; I21.9 Acute myocardial infarction, unspecified; R94.31 Abnormal electrocardiogram [ECG] [EKG] | CPT/HCPCS: 93005; 99214 ==

== ENCOUNTER → 2024-07-15 10:00 | Outpatient (BNVA) | payer MEDICARE, OTHER, SELFPAY | PROVIDERS: PCP Family Medicine; Visit Provider Nurse Practitioner Family | DX: I48.91 Unspecified atrial fibrillation (principal); E78.2 Mixed hyperlipidemia; I10 Essential (primary) hypertension; I49.8 Other specified cardiac arrhythmias; Z79.01 Long term (current) use of anticoagulants | CPT/HCPCS: 99213 ==

== ENCOUNTER → 2024-08-04 07:57 | Outpatient (BNVA) | payer MEDICARE, OTHER, SELFPAY | PROVIDERS: PCP Family Medicine; Visit Provider Podiatrist Foot & Ankle Surgery | DX: L60.3 Nail dystrophy (principal); L60.8 Other nail disorders | CPT/HCPCS: 99203 ==

== ENCOUNTER → 2024-10-04 14:01 | Outpatient (BNVA) | payer MEDICARE, OTHER, SELFPAY | PROVIDERS: PCP Family Medicine; Visit Provider Internal Medicine Cardiovascular Disease | DX: I48.91 Unspecified atrial fibrillation (principal); R06.02 Shortness of breath; M79.89 Other specified soft tissue disorders; I10 Essential (primary) hypertension; E78.2 Mixed hyperlipidemia; I49.8 Other specified cardiac arrhythmias; Z79.01 Long term (current) use of anticoagulants | CPT/HCPCS: 36415; 80048; 83880; 99214 ==

== ENCOUNTER → 2024-10-27 12:32 | Outpatient (BNVA) | payer MEDICARE, OTHER, SELFPAY | PROVIDERS: PCP Family Medicine; Visit Provider Podiatrist Foot & Ankle Surgery | DX: L60.8 Other nail disorders (principal); L60.3 Nail dystrophy | CPT/HCPCS: 99213 ==

== ENCOUNTER 2024-12-13 08:22 | Outpatient (CLI) | payer MEDICARE, OTHER, SELFPAY ==
--- NOTE | 2024-12-13 08:27 | XR_ITS ---
WS: [email or web address] Exam: XR knee RT 3V* [id number] Date/Time of Exam: 12/13/2024 8:32 AM Reason For Exam: Right knee pain No acute fracture. Mild to moderate narrowing of the medial joint compartment with marginal osteophytes. Spurring of the posterior patella. No joint effusion. Normal soft tissues. XR/XR knee RT 3V* [id number] IMPRESSION: 1. Degenerative changes as detailed above. No fracture or other significant fin ding.
[2024-12-13 08:59] LABS: Basophils % 0.6 %; Eosinophils # 0.3 10^3/uL (0.0-0.8); Eosinophils % 5.5 %; Hematocrit 39.1 % (36-47); Lymphocytes # 1.5 10^3/uL (0.8-4.8); Lymphocytes % 32.4 %; Mean Corpuscular HGB Conc 32.2 g/dL (30-55); Mean Corpuscular Hemoglobin 30.1 pg (27-33); Mean Corpuscular Volume 93.3 fl (85-98); Mean Platelet Volume 9.1 fL (7.4-10.4); Monocytes # 0.4 10^3/uL (0.2-0.9); Monocytes % 8.6 %; Neutrophils # 2.49 10^3/uL (1.8-7.7); Neutrophils % 52.5 %; Nucleated Red Blood Cells % 0 %; Platelet Count 316 10^3/cmm (157-399); Red Blood Count 4.19 10^6/uL (3.85-5.65); Red Cell Distribution Width 12.9 % (12.1-15.1); White Blood Count 4.75 10^3/uL (3.29-11.43)
[2024-12-13 09:43] LABS: 25 Hydroxy Vitamin D 33 ng/mL (30-100); Alanine Aminotransferase 13 U/L (0-33); Albumin Level 4.2 g/dL (3.5-5.2); Alkaline Phosphatase 86 U/L (35-105); Anion Gap 14.5 (5-19); Aspartate Amino Transferase 15 U/L (0-32); Blood Urea Nitrogen 27 mg/dL (8-23); Calcium 9.4 mg/dL (8.5-10.5); Carbon Dioxide 27 mmol/L (22-29); Chloride 101 mmol/L (98-107); Chol HDL Ratio 4.56 mg/dL (0.0-4.40); Cholesterol 246 mg/dL (0-200); Glucose 102 mg/dL (65-115); HDL Cholesterol 54 mg/dL (60-100); LDL Cholesterol Calculated 139 mg/dL (50-129); LDL HDL Ratio 2.57 RATIO (0.00-3.22); Osmolality Calculated 291 mOsm/kg (285-295); Potassium 4.5 mmol/L (3.5-5.1); Sodium 138 mmol/L (136-145); Thyroid Stimulating Hormone 2.78 uIU/mL (0.27-4.20); Total Bilirubin 0.3 mg/dL (0.15-1.2); Total Protein 7.2 g/dL (6.6-8.7); Triglycerides 263 mg/dL (0-150); Vitamin B12 994 pg/mL (232-1245)
[2024-12-13 10:05] LABS: Free T4 Free Thyroxine 1.53 ng/dL (0.82-1.77)
== END 2024-12-13 08:23 | disposition home or self-care (01) ==
LOC: RAD 08:25
PROVIDERS: PCP Family Medicine; Visit Provider Family Medicine
DX: M17.11 Unilateral primary osteoarthritis, right knee (principal); M25.761 Osteophyte, right knee; M77.8 Other enthesopathies, not elsewhere classified; E03.9 Hypothyroidism, unspecified; Z00.00 Encounter for general adult medical examination without abnormal findings; Z51.81 Encounter for therapeutic drug level monitoring; E55.9 Vitamin D deficiency, unspecified; E53.8 Deficiency of other specified B group vitamins; Z13.6 Encounter for screening for cardiovascular disorders
CPT/HCPCS: 36415; 73562; 80053; 80061; 82306; 82607; 84439; 84443; 85025

== ENCOUNTER 2024-12-19 09:47 | Outpatient (CLI) | payer MEDICARE, OTHER, SELFPAY ==
--- NOTE | 2024-12-19 09:45 | US_ITS ---
WS: [email or web address] THYROID ULTRASOUND REASON FOR EXAM: Thyroid nodule TECHNIQUE: Grayscale and Doppler ultrasound examination of the thyroid gland. FINDINGS: RIGHT: Right thyroid gland has been previously surgically removed. LEFT: Left thyroid gland measures 5.1 cm x 2.3 cm x 2.3 cm. Left thyroid volume equals 13.1 ccm3. The left lobe of the thyroid is inhomogeneous and has the appearance of multinodular goiter. Measurement of nodule dimensions and number of nodules in the left lobe of the thyroid is inconsistent over several studies. A biopsy of the dominant area of abnormality of the left lobe of the thyroid was performed 12/17/2022. This dominant area essentially measures 2 x 2 x 3 cm which is essentially the dimensions on the CT scan of the neck 03/03/2023. The current ultrasound dimensions of the left lobe of the thyroid are essentially the same as on the previous CT scan as well. Thyroid isthmus: 0.3 mm. No adenopathy. US/US thyroid [id number] IMPRESSION: Stable multinodular left lobe of the thyroid with the right lobe previously juan gically removed.
== END 2024-12-19 09:48 | disposition home or self-care (01) ==
LOC: RAD 09:48
PROVIDERS: PCP Family Medicine; Visit Provider Family Medicine
DX: E04.1 Nontoxic single thyroid nodule (principal)
CPT/HCPCS: 76536

== ENCOUNTER 2024-12-22 09:36 | Outpatient (CLI) | payer MEDICARE, OTHER, SELFPAY ==
--- NOTE | 2024-12-22 09:30 | MM_ITS ---
WS: [email or web address] BILATERAL 3D TOMOSYNTHESIS DIGITAL DIAGNOSTIC MAMMOGRAPHY WITH CAD CLINICAL INFORMATION: Painful lesion on left breast at 9 o'clock 5cm from areola HISTORY: LEFT breast lump COMPARISON: 2022 TECHNIQUE: Bilateral CC, MLO, and ML views. FINDINGS: Scattered fibroglandular densities bilaterally. Few tiny incidental punctate calcifications. Palpable marker LEFT breast. Normal underlying parenchymal tissue. Ultrasound of this area is pending. RIGHT breast appears unchanged and otherwise unremarkable. ULTRASOUND BREAST LEFT TECHNIQUE: Ultrasound left breast focused area of concern. CLINICAL INFORMATION: Painful lesion on left breast at 9 o'clock 5cm from areola FINDINGS: Ultrasound LEFT breast area of concern 9 o'clock position 5 cm from the nipple. Normal underlying parenchymal tissue. No cystic or solid lesions. No suspicious findings. Recommend return to annual screening mammography. MM/MM diag BI tomosynthesis [id number] IMPRESSION: DENSITY: There are scattered areas of fibroglandular density. BI-RADS: 2 - Benign. FOLLOW UP: 1 Year Follow-up Recommend return to annual screening mammography.
--- NOTE | 2024-12-22 09:46 | US_ITS ---
WS: [email or web address] BILATERAL 3D TOMOSYNTHESIS DIGITAL DIAGNOSTIC MAMMOGRAPHY WITH CAD CLINICAL INFORMATION: Painful lesion on left breast at 9 o'clock 5cm from areola HISTORY: LEFT breast lump COMPARISON: 2022 TECHNIQUE: Bilateral CC, MLO, and ML views. FINDINGS: Scattered fibroglandular densities bilaterally. Few tiny incidental punctate calcifications. Palpable marker LEFT breast. Normal underlying parenchymal tissue. Ultrasound of this area is pending. RIGHT breast appears unchanged and otherwise unremarkable. ULTRASOUND BREAST LEFT TECHNIQUE: Ultrasound left breast focused area of concern. CLINICAL INFORMATION: Painful lesion on left breast at 9 o'clock 5cm from areola FINDINGS: Ultrasound LEFT breast area of concern 9 o'clock position 5 cm from the nipple. Normal underlying parenchymal tissue. No cystic or solid lesions. No suspicious findings. Recommend return to annual screening mammography. US/US breast LT limited* [id number] IMPRESSION: DENSITY: There are scattered areas of fibroglandular density. BI-RADS: 2 - Benign. FOLLOW UP: 1 Year Follow-up Recommend return to annual screening mammography.
== END 2024-12-22 09:37 | disposition home or self-care (01) ==
LOC: RAD 09:37
PROVIDERS: PCP Family Medicine; Visit Provider Family Medicine
DX: N64.9 Disorder of breast, unspecified (principal)
CPT/HCPCS: 76642; 77062; G0279

== ENCOUNTER → 2025-01-23 11:08 | Outpatient (BNVA) | payer MEDICARE, OTHER, SELFPAY | PROVIDERS: PCP Family Medicine; Visit Provider Podiatrist Foot & Ankle Surgery | DX: L60.3 Nail dystrophy (principal); L60.8 Other nail disorders; G57.61 Lesion of plantar nerve, right lower limb | CPT/HCPCS: 99213 ==

== ENCOUNTER → 2025-03-16 12:21 | Outpatient (BNVA) | payer MEDICARE, OTHER, SELFPAY | PROVIDERS: PCP Family Medicine; Visit Provider Internal Medicine Cardiovascular Disease | DX: I48.20 Chronic atrial fibrillation, unspecified (principal); Z79.01 Long term (current) use of anticoagulants; E78.5 Hyperlipidemia, unspecified; I10 Essential (primary) hypertension; I49.9 Cardiac arrhythmia, unspecified; R00.2 Palpitations; R53.83 Other fatigue | CPT/HCPCS: 36415; 85025; 93005; 99214 ==

== ENCOUNTER → 2025-03-17 13:00 | Outpatient (BNVA) | payer MEDICARE, OTHER, SELFPAY | PROVIDERS: PCP Family Medicine; Visit Provider Emergency Medicine | DX: N39.0 Urinary tract infection, site not specified (principal) | CPT/HCPCS: 81000; 87086 ==

== ENCOUNTER → 2025-05-31 10:03 | Outpatient (BNVA) | payer MEDICARE, OTHER, SELFPAY | PROVIDERS: PCP Family Medicine; Visit Provider Internal Medicine Cardiovascular Disease | DX: I48.20 Chronic atrial fibrillation, unspecified (principal); Z79.01 Long term (current) use of anticoagulants; E78.5 Hyperlipidemia, unspecified; I10 Essential (primary) hypertension; I49.9 Cardiac arrhythmia, unspecified; G47.33 Obstructive sleep apnea (adult) (pediatric); E03.9 Hypothyroidism, unspecified; E78.2 Mixed hyperlipidemia; I48.91 Unspecified atrial fibrillation; R53.83 Other fatigue; R09.02 Hypoxemia | CPT/HCPCS: 99214 ==

== ENCOUNTER 2025-06-01 11:38 | Outpatient (CLI) | payer MEDICARE, OTHER, SELFPAY ==
[2025-06-01 12:44] LABS: Hematocrit 40.6 % (36-47); Hemoglobin 12.90 g/dL (11.27-16.99); Mean Corpuscular HGB Conc 31.8 g/dL (30-55); Mean Corpuscular Hemoglobin 29.2 pg (27-33); Mean Corpuscular Volume 91.9 fl (85-98); Nucleated Red Blood Cells % 0 %; Platelet Count 298 10^3/cmm (157-399); Red Blood Count 4.42 10^6/uL (3.85-5.65); White Blood Count 4.13 10^3/uL (3.29-11.43)
[2025-06-01 13:24] LABS: Alanine Aminotransferase 17 U/L (0-33); Albumin Level 4.1 g/dL (3.5-5.2); Alkaline Phosphatase 88 U/L (35-105); Anion Gap 13.3 (5-19); Aspartate Amino Transferase 18 U/L (0-32); Blood Urea Nitrogen 20 mg/dL (8-23); Calcium 9.5 mg/dL (8.5-10.5); Carbon Dioxide 28 mmol/L (22-29); Chloride 104 mmol/L (98-107); Cholesterol 231 mg/dL (0-200); Globulin 2.8 g/dL (1.3-4.6); Glucose 97 mg/dL (65-115); HDL Cholesterol 59 mg/dL (60-100); NT Pro B Type Natriuretic Pept 50 pg/mL (0-450); Osmolality Calculated 295 mOsm/kg (285-295); Potassium 4.3 mmol/L (3.5-5.1); Sodium 141 mmol/L (136-145); Thyroid Stimulating Hormone 1.59 uIU/mL (0.27-4.20); Total Protein 6.9 g/dL (6.6-8.7); Triglycerides 277 mg/dL (0-150)
== END 2025-06-01 11:39 | disposition home or self-care (01) ==
LOC: LAB 11:38
PROVIDERS: PCP Family Medicine; Visit Provider Internal Medicine Cardiovascular Disease
DX: I10 Essential (primary) hypertension (principal); E78.2 Mixed hyperlipidemia; E03.9 Hypothyroidism, unspecified; I49.9 Cardiac arrhythmia, unspecified; I48.91 Unspecified atrial fibrillation; R53.83 Other fatigue; R09.02 Hypoxemia; G47.33 Obstructive sleep apnea (adult) (pediatric)
CPT/HCPCS: 36415; 80053; 80061; 83880; 84443; 85025